=== PATIENT | male | born 1955 | race Caucasian/White ===

== ENCOUNTER 2024-07-14 18:03 | Emergency (ER) | payer MEDICARE, MEDICAID, SELFPAY ==
[2024-07-14 18:13] VITALS: BP 143/93; PULSE 99; RESP 18; TEMP 36.4; O2SAT 98; BMI 28.8
--- NOTE | 2024-07-14 18:59 | EKG_ITS ---
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
--- NOTE | 2024-07-14 19:29 | XR_ITS ---
Examination: CT brain head without contrast. 2-D sagittal coronal reconstructions Date and time of exam:July 14, 2024 1936 hrs. Comparison: December 22, 2023 Indications: Ground-level fall today CTDI: vol (mGy):56.9 DLP: (mGycm):1132 Technique: Multiple CT axial sections of the brain have been obtained, 5 mm slice thickness. Contrast has not been administered. 2-D sagittal, coronal reconstructions have been obtained Low dose protocols were performed. One or more of the following dose reduction techniques were used; automated exposure control, adjustment of the mA and/or KV according to patient size, use of iterative reconstruction technique. Findings: No significant ventricular enlargement. Intra-axial or extra-axial hemorrhage density is not seen. No mass effect or midline shift Basal cisterns are not remarkable. Fourth ventricle is midline. Cranial vault intact. Impression: Negative for acute hemorrhage, mass effect or midline shift
--- NOTE | 2024-07-14 19:29 | XR_ITS ---
Examination: AP chest single view Technique: AP portable sitting chest single view Exam date and time: July 14, 2024 1947 hrs. Comparison 05/08/2024 Indications: Onset weakness today. Findings: Normal heart size Mild to moderate elevation right hemidiaphragm No pneumonia or pulmonary edema Moderate osteopenia Impression: No pneumonia or pulmonary edema
--- NOTE | 2024-07-14 19:55 | PC.NURSE ---
Assume care for this 69 year male with chief c/o of syncopal episode at home today around 1730hr. Pt reports that he was walking inside his home and heading toward a window that was open, and as he was walking, Pt stated, I don't remember anything. Pt denied hitting his head and that he was alone at the time of the fall. Pt reports that he has lifealert braces that help him contact EMS. On assessment there is no noticeable injures noted, Pt is able to MAEW without any discomfort. Pt is a GCS of 15, A&O X4. pt and caregiver both given update on plan of care. Call light within reach.
[2024-07-14 20:45] LABS: Basophils % (Auto) 0 % (0-2.5); Eosinophils # (Auto) 0.1 Thou/mm3 (0.0-0.5); Eosinophils % (Auto) 1 % (0-10); Hematocrit 42.2 % (41.0-53.0); Immature Granulocytes % (Auto) 1 % (0-0); Immature Granulocytes Auto 0.05 Thou/mm3 (0.00-0.00); Lymphocytes # (Auto) 0.8 Thou/mm3 (1.0-4.8); Lymphocytes % (Auto) 8 % (10-50); Mean Corpuscular HGB Conc 33.2 g/dl (31.0-37.0); Mean Corpuscular Hemoglobin 31.8 pg (25.0-35.0); Mean Corpuscular Volume 96 fL (80-100); Monocytes # (Auto) 0.8 Thou/mm3 (0.0-0.8); Monocytes % (Auto) 8 % (0-12); Neutrophils # (Auto) 7.5 Thou/mm3 (1.8-7.7); Neutrophils % (Auto) 81 % (37-80); Nucleated Red Blood Cell % 0 /100 WBC (0); Platelet Count 199 Thou/mm3 (140-440); RDW Standard Deviation 49.4 fL (35.1-43.9); White Blood Count 9.3 Thou/mm3 (3.8-10.6)
[2024-07-14 21:20] LABS: Alanine Aminotransferase < 7 U/L (10-49); Albumin, Serum 4.2 gm/dL (3.4-4.8); Albumin/Globulin Ratio 1.6 (1.2-2.2); Alkaline Phosphatase 166 U/L (46-116); Anion Gap 6 (7-16); Aspartate Amino Transferase 12 U/L (0-34); BUN/Creatinine Ratio 14 Ratio (12-20); Bilirubin,Total 0.2 mg/dL (0.3-1.2); Blood Urea Nitrogen 14 mg/dL (9-23); Calcium 9.9 mg/dL (8.3-10.6); Calcium (Corrected) 9.9 mg/dL (8.5-10.1); Carbon Dioxide 30.3 mMol/L (20.0-31.0); Chloride 102 mMol/L (98-107); Estimated Creatinine Clearance 76.6 mL/min (>60); Globulin 2.7 gm/dL (2.3-3.5); Glucose 104 mg/dL (74-106); Osmolality,Calculated 276 (275-295); Potassium 4.1 mMol/L (3.4-5.1); Sodium 138 mMol/L (136-145); Total Protein 6.9 gm/dL (5.7-8.2); eGFR > 60 See Note
--- NOTE | 2024-07-14 21:30 | PD.EDSYNC ---
ED Syncope RME/HPI General Chief Complaint: Syncope / Near Syncope Stated Complaint: SYNCOPE Arrival date/time: 07/14/24 18:03 Limitations: no limitations RME / HPI RME / HPI narrative: DR. DAIGLE MAIN ED EVALUATION: 69-year-old male with history of frequent falls, generalized weakness, with a life alert bracelet which deactivated due to a fall while he was going to close the blinds on his window. He denies tripping, he feels that he just felt too dizzy as he normally does and fell to the ground. He denies any head, neck, or extremity pain. He has no complaints now. Related Data Home Medications ?Medication ?Instructions ?Recorded ?Confirmed Losartan Potassium * (COZAAR *) 25 mg PO QDAY #0 tabs 06/26/17 aspirin 81 mg chewable tablet 81 mg PO QDAY ##0 06/26/17 cholecalciferol (vitamin D3) 50 2,000 unit PO QDAY #0 caps 06/26/17 mcg (2,000 unit) capsule (Vitamin D3) omeprazole 20 mg capsule,delayed 20 mg PO QDAY ##0 06/26/17 release primidone 250 mg tablet (Mysoline) 250 mg PO TID #0 tabs 06/26/17 carbamazepine 200 mg tablet 400 mg PO TID ##0 09/14/17 (Epitol) levetiracetam 500 mg tablet 500 mg PO BID #0 tabs 09/14/17 (Keppra) Previous Rx's ?Medication ?Instructions ?Recorded lisinopril 10 mg tablet 10 mg PO QDAY #30 tabs 06/26/17 albuterol sulfate 90 mcg/actuation 2 puff inhalation Q6HR PRN 09/14/17 aerosol inhaler (ProAir HFA) SHORTNESS OF BREATH OR WHEEZE #1 inh azithromycin 250 mg tablet 250 mg PO UD #6 tabs 09/14/17 (Zithromax) Allergies Allergy/AdvReac Type Severity Reaction Status Date / Time diazepam Allergy Mild Verified 09/14/17 10:07 divalproex sodium Allergy Mild Verified 09/14/17 10:07 Review of Systems Review of Systems Systems Reviewed: All systems reviewed, normal except as documented Narrative Review of Systems: GEN: No fever, no chills, no weight loss EYES: No discharge, no visual changes, no pain HEENT: No ear pain, no congestion, no sore throat PULM: No shortness of breath, no cough, no congestion CV: No chest pain, no dyspnea on exertion, no palpitations GI: No nausea, no vomiting, no diarrhea, no pain, no constipation : No frequency, no urgency and no dysuria MUSC/SKEL: No joint pain, no back pain SKIN: No rash PSYCH: No hallucinations, no depression HEME/LYMPH: No easy bleeding or bruising tendencies NEURO: + chronic generalized weakness (frequent falls see HPI), no headache Past Medical History Past Medical History NEUROLOGIC: Positive Epilepsy CARDIAC: Positive Hypertension GASTROINTESTINAL: Positive Gastroesophageal Reflux Disease Social History SMOKING STATUS: Never smoker SUBSTANCE USE: does not use ALCOHOL: Never ED Exam General Limitations: Present no limitations General appearance: Present alert and in no apparent distress Head Head exam: Present atraumatic, normocephalic and normal inspection Eye Eye exam: Present normal appearance, PERRL and EOMI ENT ENT exam: Present normal exam, normal oropharynx and mucous membranes moist Neck Neck exam: Present normal inspection, full ROM and trachea midline Chest Chest inspection: Present normal inspection and symmetric chest wall rise Respiratory Respiratory exam: Present normal lung sounds bilaterally Cardiovascular Cardiovascular exam: Present regular rate, normal rhythm and normal heart sounds Abdominal Exam Abdominal exam: Present soft and normal bowel sounds Extremities Exam Extremities exam: Present normal inspection and full ROM Back Exam Back exam: Present normal inspection and full ROM Neurological Exam Neurological exam: Present alert, oriented X3 and CN II-XII intact Psychiatric Psychiatric exam: Present normal affect and normal mood Skin Skin exam: Present warm, dry, intact and normal color Course Course Course Narrative: Patient was able to ambulate in the emergency department with minimal assistance. Quality Measures none Orders Category Date Time Status EKG (ED ONLY) *Do not use* NOW Care 07/14/24 18:[address] head/brain wo con Stat Exams 07/14/24 19:29 Completed EKG (ED Only) Stat Exams 07/14/24 18:59 Ordered XR chest 1V Stat Exams 07/14/24 19:29 Completed CBC Stat Lab 07/14/24 20:33 Completed CMP [Comprehensive Metabolic Panel] Stat Lab 07/14/24 20:33 Completed Vital Signs Vital signs: Vital Signs Temperature 97.6 F 07/14/24 18:13 Pulse Rate 99 07/14/24 18:13 Respiratory Rate 18 07/14/24 18:13 Blood Pressure 143/93 H 07/14/24 18:13 Pulse Oximetry (%) 98 07/14/24 18:13 Oxygen Delivery Method Room Air 07/14/24 18:13 Syncope MDM Narrative MDM Narrative:: Analilia Myers am scribing for and in the presence of Dr. Daigle. Patient data External records reviewed:: [facility] previous records (Reviewed last ED visit dated 05/08/24, discharged with the following: near syncope.) and EMS form Clinical information provided by:: patient and EMS Social determinants that could affect healthcare access:: none Patient has the following chronic illnesses:: Hypertension and GERD How is presenting disease/condition affected by chronic disease/condition?: uneffected by Evaluation data The following diagnostics were reviewed and interpreted by me:: lab results and radiology exam(s) Lab and/or radiology exams considered but not ordered:: none Interpretation Summary: Procedure(s): CT head/brain wo [facility] Accession Number(s): [id number] cc: Juan Asencio MD; Raudel Daigle MD; Chele Fabian MD~ Examination: CT brain head without contrast. 2-D sagittal coronal reconstructions Date and time of exam:July 14, 2024 1936 hrs. Comparison: December 22, 2023 Indications: Ground-level fall today CTDI: vol (mGy):56.9 DLP: (mGycm):1132 Technique: Multiple CT axial sections of the brain have been obtained, 5 mm slice thickness. Contrast has not been administered. 2-D sagittal, coronal reconstructions have been obtained Low dose protocols were performed. One or more of the following dose reduction techniques were used; automated exposure control, adjustment of the mA and/or KV according to patient size, use of iterative reconstruction technique. Findings: No significant ventricular enlargement. Intra-axial or extra-axial hemorrhage density is not seen. No mass effect or midline shift Basal cisterns are not remarkable. Fourth ventricle is midline. Cranial vault intact. Impression: Negative for acute hemorrhage, mass effect or midline shift Dictated By: Chele Fabian MD Procedure(s): XR chest 1V Accession Number(s): [id number] cc: Juan Asencio MD; Raudel Daigle MD; Chele Fabian MD~ Examination: AP chest single view Technique: AP portable sitting chest single view Exam date and time: July 14, 2024 1947 hrs. Comparison 05/08/2024 Indications: Onset weakness today. Findings: Normal heart size Mild to moderate elevation right hemidiaphragm No pneumonia or pulmonary edema Moderate osteopenia Impression: No pneumonia or pulmonary edema Dictated By: Chele Fabian MD Medications / Prescriptions Medications or Prescriptions considered but not ordered:: none Medication administrations:: none Consultations Consultation(s) initiated? (list below): No Diagnosis Syncope Differential Diagnosis: syncope due to orthostatic hypotension, vasovagal syncope and dehydration Most likely diagnosis given after review of the tests above:: Weakness Ground-level fall Admission Indicated Admission indicated?: not indicated Admission Request Was there a request for admission?: No Disposition Plan Disposition Plan: Discharge Discharge Attestation Discharge Attestation: The patient and all family members were given an opportunity to ask questions and understood the discharge instructions. Discharge instructions specifically effects, indications for sooner follow up or return to the emergency department, and the expected course of current diagnosis. Patient condition: Stable Discharge Plan Plan Patient Disposition: HOME (Self Care) Prescriptions/Referrals Prescriptions/Med Rec: No Action primidone [Mysoline] 250 MG tablet 250 mg PO TID Qty: 0 omeprazole 20 MG capsule,delayed release(DR/EC) 20 mg PO QDAY Qty: 0 aspirin 81 MG tablet,chewable 81 mg PO QDAY Qty: 0 cholecalciferol (vitamin D3) [Vitamin D3] 2,000 UNIT capsule 2,000 unit PO QDAY Qty: 0 Losartan Potassium * (COZAAR *) 25 MG tablet 25 mg PO QDAY Qty: 0 lisinopril 10 MG tablet 10 mg PO QDAY Qty: 30 0RF levetiracetam [Keppra] 500 MG tablet 500 mg PO BID Qty: 0 carbamazepine [Epitol] 200 MG tablet 400 mg PO TID Qty: 0 azithromycin [Zithromax] 250 MG tablet 250 mg PO UD Qty: 6 0RF albuterol sulfate [ProAir HFA] 8.5 GM HFA aerosol inhaler 2 puff Inhalation Q6HR PRN (Reason: SHORTNESS OF BREATH OR WHEEZE) Qty: 1 0RF Referrals: Juan Asencio MD [Primary Care Provider] - In 1 week Problem List Clinical Impression: Weakness, Ground-level fall Patient/Caregiver Discharge Instructions Education Materials: ED Weakness (Uncertain Cause), ED Fall Dizziness Weakn Balance Additional Instructions: Follow-up with your primary care doctor in 2 to 3 days for recheck. You can return to the emergency department sooner if symptoms worsen or if you notice any new, concerning issues Print Language: Upper Sorbian Stand Alone Forms: [facility] Award Info., Patient Portal Info Letter
[2024-07-14 21:35] VITALS: BP 138/93; PULSE 98; RESP 19; TEMP 36.9; O2SAT 97
[2024-07-14 21:44] VITALS: BP 139/93; PULSE 101; RESP 18; TEMP 36.8; O2SAT 99
== END 2024-07-14 21:44 | disposition home or self-care (01) ==
PROVIDERS: Emergency Provider Emergency Medicine; PCP Family Medicine
DX: R00.0 Tachycardia, unspecified (principal); R53.1 Weakness; R29.6 Repeated falls; R55 Syncope and collapse; I10 Essential (primary) hypertension; W18.30XA Fall on same level, unspecified, initial encounter
CPT/HCPCS: 36415; 70450; 71045; 80053; 81001; 85025; 93005; 99284

== ENCOUNTER 2024-10-09 19:49 | Inpatient (IN) | payer MEDICARE, MEDICAID, SELFPAY ==
[2024-10-09 19:57] VITALS: BP 132/81; PULSE 104; PULSE 84; RESP 20; TEMP 36.7; O2SAT 98; BMI 24.3
--- NOTE | 2024-10-09 20:19 | PD.EDFALL ---
ED Fall Injury RME/HPI General Chief Complaint: Fall Stated Complaint: FALL Time Seen by Provider: 10/09/24 20:19 Arrival date/time: 10/09/24 19:49 RME / HPI RME / HPI Narrative: Dr. Simpson?s Main ED Evaluation: 69yo male with a history of epilepsy BIBA from home presents to the ED for a fall. Patient states he was walking to the kitchen when he slipped and fell, landing on his left hip/thigh area. He endorses having left hip/thigh pain. He is unsure if he hit his head or neck. No LOC. He denies any headache, neck pain, chest pain, abdominal pain, back pain, cough, shortness of breath, dizziness, N/V/D or any other assocaited symptoms. He denies having a seizure. Related Data Home Medications ?Medication ?Instructions ?Recorded ?Confirmed Losartan Potassium * (COZAAR *) 25 mg PO QDAY #0 tabs 06/26/17 aspirin 81 mg chewable tablet 81 mg PO QDAY ##0 06/26/17 cholecalciferol (vitamin D3) 50 2,000 unit PO QDAY #0 caps 06/26/17 mcg (2,000 unit) capsule (Vitamin D3) omeprazole 20 mg capsule,delayed 20 mg PO QDAY ##0 06/26/17 release primidone 250 mg tablet (Mysoline) 250 mg PO TID #0 tabs 06/26/17 carbamazepine 200 mg tablet 400 mg PO TID ##0 09/14/17 (Epitol) levetiracetam 500 mg tablet 500 mg PO BID #0 tabs 09/14/17 (Keppra) Previous Rx's ?Medication ?Instructions ?Recorded lisinopril 10 mg tablet 10 mg PO QDAY #30 tabs 06/26/17 albuterol sulfate 90 mcg/actuation 2 puff inhalation Q6HR PRN 09/14/17 aerosol inhaler (ProAir HFA) SHORTNESS OF BREATH OR WHEEZE #1 inh azithromycin 250 mg tablet 250 mg PO UD #6 tabs 09/14/17 (Zithromax) Allergies Allergy/AdvReac Type Severity Reaction Status Date / Time diazepam Allergy Mild Verified 09/14/17 10:07 divalproex sodium Allergy Mild Verified 09/14/17 10:07 Review of Systems Review of Systems Systems Reviewed: All systems reviewed, normal except as documented ED Exam Narrative Physical exam: GENERAL APPEARANCE: alert and oriented x 4, well-developed, well-nourished, no acute distress VITALS: All vitals were reviewed and the pulse ox is 98% on room air, which is normal according to my interpretation. HEENT: Normocephalic, atraumatic; pupils equal, round, reactive to light; EOMI; mucous membranes pink, moist; oropharynx clear NECK: Supple LUNGS: CTABL; no wheezes, no rales, no rhonchi HEART: Regular rate, regular rhythm; normal S1, S2; no murmurs ABDOMEN: non distended; normal BS; soft, no tenderness, no guarding, no rebound; no masses, no organomegaly, no hernia BACK: no CVA tenderness EXTREMITIES: LLE is shortened and externally rotated; good pulses bilaterally to the LE; no edema NEUROLOGIC: awake; alert and oriented x4; cranial nerves II-XII grossly intact; no focal sensory or motor deficits PSYCHIATRIC: appropriate mood and affect SKIN: warm, dry, normal color; no rashes Course Quality Measures none Orders Category Date Time Status XR femur LT 2V Stat Exams 10/09/24 20:19 Completed XR hip LT w pelvis min 4V Stat Exams 10/09/24 20:19 Completed XR knee LT 3V Stat Exams 10/09/24 20:19 Completed Acetaminophen Tab [Tylenol ES Tab] Med 10/09/24 20:21 Discontinued 1,000 mg PO X1 ONE Ibuprofen Tab [Motrin Tab] Med 10/09/24 20:21 Discontinued 600 mg PO X1 ONE Vital Signs Vital signs: Vital Signs Temperature 98.0 F 10/09/24 19:57 Pulse Rate 104 H 10/09/24 19:57 Respiratory Rate 20 10/09/24 19:57 Blood Pressure 132/81 H 10/09/24 19:57 Pulse Oximetry (%) 98 10/09/24 19:57 Oxygen Delivery Method Room Air 10/09/24 19:57 Fall MDM Narrative MDM Narrative:: Scribe Attestation: 10/09/24 - Nazia Myers am scribing for and in the presence of Dr. Simpson. Patient data External records reviewed:: [facility] previous records (Per chart review, patient was seen here on 05/08/24 for near syncope.) Clinical information provided by:: patient Social determinants that could affect healthcare access:: none Patient has the following chronic illnesses:: epilepsy How is presenting disease/condition affected by chronic disease/condition?: uneffected by Evaluation data The following diagnostics were reviewed and interpreted by me:: radiology exam(s) Lab and/or radiology exams considered but not ordered:: none Interpretation Summary: [facility] Signed Patient: LULU ROMO. Record#: [id number] Birthdate: 1955 Age/Sex: 69 / M Location: [facility] Attending Dr: Ordering Physician: Geraldo Simpson MD Date of Service: 10/09/24 Procedure(s): XR knee LT 3V Accession Number(s): [id number] cc: Chele Fabian MD; Geraldo Simpson MD~ Examination: Knee, left , 2 views Technique: Knee AP, lateral, 2 views left Date and time of exam: October 09, 20242052 hrs. Indications: Patient fell today with injury to the knee, knee pain. Findings: No acute fracture No dislocation Impression: No acute fracture Dictated By: Chele Fabian MD Signed By: <Electronically signed by Chele Fabian MD in OV> 10/09/242053 [facility] Signed Patient: LULU ROMO [facility]. Record#: [id number] Birthdate: 1955 Age/Sex: 69 / M Location: [facility] Attending Dr: Ordering Physician: Geraldo Simpson MD Date of Service: 10/09/24 Procedure(s): XR hip LT w pelvis min 4V Accession Number(s): [id number] cc: Chele Fabian MD; Geraldo Simpson MD~ Examination:Left hip AP, lateral, AP pelvis 3 views Technique: Hip AP lateral, AP pelvis, 3 views Exam date and time:October 09, 20242021 hrs. Indications: Patient fell today with into the left hip, left hip pain. Findings: Acute angulated displaced left femoral neck fracture Right hip bones of the pelvis intact Impression: Acute angulated displaced left femoral neck fracture. Dictated By: Chele Fabian MD Signed By: <Electronically signed by Chele Fabian MD in OV> 10/09/242051 [facility] Signed Patient: LULU ROMO. Record#: [id number] Birthdate: 1955 Age/Sex: 69 / M [facility]: Ordering Physician: Geraldo Simpson MD Date of Service: 10/09/24 Procedure(s): XR femur LT 2V Accession Number(s): [id number] cc: Chele Fabian MD; Geraldo Simpson MD~ Examination: Left femur 2 views Technique: AP lateral left femur 2 views Exam date and time: October 09, 20242026 hrs. Indications: Patient fell today with injury to the left leg, leg pain. Findings: Acute displaced left femoral neck fracture Shaft of the femur intact Prominent osteopenia Impression: Acute angulated displaced left femoral neck fracture Dictated By: Chele Fabian MD Signed By: <Electronically signed by Chele Fabian MD in OV> 10/09/242052 Medications / Prescriptions Medications or Prescriptions considered but not ordered:: none Medication administrations:: Medication Administration History Discontinued Medications Acetaminophen (Acetaminophen 500 Mg Tablet) 1,000 mg PO X1 ONE Stop: 10/09/24 20:22 Last Admin: 10/09/24 20:44 Dose: 1,000 mg Documented By: CVL Ibuprofen (Ibuprofen Tab 600 Mg Tablet) 600 mg PO X1 ONE Stop: 10/09/24 20:22 Last Admin: 10/09/24 20:44 Dose: 600 mg Documented By: CVCamron see above Consultations Consultation(s) initiated? (list below): Yes Consultation #1 (Physician, Specialty, Details): Discussed case with [Dr. Davis] from [general surgery] regarding [consultation]. Discussed patients ED course, exam findings, labs, and radiology results. Agrees to consult. States to keep the patient NPO after midnight. Time: 21:27 Consultation #2 (Physician, Specialty, Details): Discussed case with [the resident physician, attending Dr. Perez] from Hospitalist service regarding admission. Discussed patients ED course, exam findings, labs, and radiology results. The Hospitalist [agrees] to accept the patient for admission. Time: 21:29 Diagnosis Fall Differential Diagnosis: other (fracture, dislocation, contusion) Most likely diagnosis given after review of the tests above:: left femoral fracture Admission Indicated Admission indicated?: indicated Admission Request Was there a request for admission?: Yes Admission Attestation Admission request attestation: Discussed case with [] from Hospitalist service regarding admission. Discussed patients ED course, exam findings, labs, and radiology results. The Hospitalist [agrees,declines] to accept the patient for admission. Disposition Plan Disposition Plan: Admit Discharge Plan Plan Patient Disposition: Admit Acute Care w/in Hospital Prescriptions/Referrals Prescriptions/Med Rec: No Action primidone [Mysoline] 250 MG tablet 250 mg PO TID Qty: 0 omeprazole 20 MG capsule,delayed release(DR/EC) 20 mg PO QDAY Qty: 0 aspirin 81 MG tablet,chewable 81 mg PO QDAY Qty: 0 cholecalciferol (vitamin D3) [Vitamin D3] 2,000 UNIT capsule 2,000 unit PO QDAY Qty: 0 Losartan Potassium * (COZAAR *) 25 MG tablet 25 mg PO QDAY Qty: 0 lisinopril 10 MG tablet 10 mg PO QDAY Qty: 30 0RF levetiracetam [Keppra] 500 MG tablet 500 mg PO BID Qty: 0 carbamazepine [Epitol] 200 MG tablet 400 mg PO TID Qty: 0 azithromycin [Zithromax] 250 MG tablet 250 mg PO UD Qty: 6 0RF albuterol sulfate [ProAir HFA] 8.5 GM HFA aerosol inhaler 2 puff Inhalation Q6HR PRN (Reason: SHORTNESS OF BREATH OR WHEEZE) Qty: 1 0RF Problem List Clinical Impression: Closed fracture of neck of left femur Patient/Caregiver Discharge Instructions Print Language: Serbian Stand Alone Forms: [facility] Award Info., Patient Portal Info Letter
[2024-10-09] MEDS: IBUPROFEN TAB 600 MG TABLET PO (20:44)
[2024-10-09] MEDS: ACETAMINOPHEN 500 MG TABLET 1000 MG PO (20:44)
--- NOTE | 2024-10-09 21:22 | XR_ITS ---
Examination: AP chest single view Technique one AP portable semiupright chest single view Exam date and time: October 09, 2024 2147 hrs. Indications: Patient fell today with injury to the chest, chest pain Findings: Normal heart size No pneumothorax Minor atelectasis at the right base Clavicles ribs appear intact Impression: No pneumothorax pulmonary contusion or hemothorax
--- NOTE | 2024-10-09 21:22 | EKG_ITS ---
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
[2024-10-09 21:55] LABS: Basophils # (Auto) 0.1 Thou/mm3 (0.0-0.2); Basophils % (Auto) 1 % (0-2.5); Eosinophils # (Auto) 0.2 Thou/mm3 (0.0-0.5); Eosinophils % (Auto) 2 % (0-10); Hematocrit 42.5 % (41.0-53.0); Hemoglobin 14.5 g/dL (13.5-16.0); Immature Granulocytes % (Auto) 1 % (0-0); Immature Granulocytes Auto 0.06 Thou/mm3 (0.00-0.00); Lymphocytes % (Auto) 10 % (10-50); Mean Corpuscular HGB Conc 34.1 g/dl (31.0-37.0); Mean Corpuscular Volume 94 fL (80-100); Monocytes # (Auto) 0.8 Thou/mm3 (0.0-0.8); Monocytes % (Auto) 8 % (0-12); Neutrophils % (Auto) 79 % (37-80); Nucleated Red Blood Cell % 0 /100 WBC (0); Platelet Count 178 Thou/mm3 (140-440); RDW Standard Deviation 46.5 fL (35.1-43.9); Red Blood Count 4.53 Miln/mm3 (4.50-5.90); White Blood Count 10.1 Thou/mm3 (3.8-10.6)
[2024-10-09 22:03] LABS: Alanine Aminotransferase 12 U/L (10-49); Albumin, Serum 4.3 gm/dL (3.4-4.8); Albumin/Globulin Ratio 1.5 (1.2-2.2); Alkaline Phosphatase 155 U/L (46-116); Anion Gap 7 (7-16); Aspartate Amino Transferase 12 U/L (0-34); BUN/Creatinine Ratio 17 Ratio (12-20); Bilirubin,Total 0.2 mg/dL (0.3-1.2); Blood Urea Nitrogen 17 mg/dL (9-23); Calcium 9.1 mg/dL (8.3-10.6); Calcium (Corrected) 9.1 mg/dL (8.5-10.1); Carbon Dioxide 30.1 mMol/L (20.0-31.0); Chloride 100 mMol/L (98-107); Estimated Creatinine Clearance 69.4 mL/min (>60); Globulin 2.8 gm/dL (2.3-3.5); Glucose 104 mg/dL (74-106); Magnesium 1.8 mg/dL (1.6-2.6); Osmolality,Calculated 275 (275-295); Partial Thromboplastin Time 24.7 Seconds (22.0-36.0); Potassium 4.4 mMol/L (3.4-5.1); Prothrombin Time 10.9 Seconds (9.0-12.2); Sodium 137 mMol/L (136-145); Total Protein 7.1 gm/dL (5.7-8.2); eGFR > 60 See Note
--- NOTE | 2024-10-09 22:28 | PD.RESHP ---
Documentation for date of: 10/09/24 [facility] History of Present Illness Chief complaint: Left hip pain status post ground-level mechanical fall History of present illness: Mr. Aviles is a 69-year-old male with past medical history of seizure disorder, hypertension, GERD and vitamin D deficiency who presented to [facility] on 10/09/2024 from home after ground-level mechanical fall for hip pain. Patient reported that earlier this morning he was in his kitchen when he tripped on spilled ice tea and hurt his left hip, patient denied hitting head, denied dizziness loss of consciousness, seizure or seizure-like activity. Patient otherwise has no complaints, reports following up with Dr. Roa outpatient for seizures. Currently denies any chest pain headache and shortness of breath. ED Course: ED Vitals: On presentation BP 132/81, P104, RR 20, temp 98.0, O2 sat 98 on room air ED Labs: ED labs significant for alk phos 155. ED Imaging: Patient's femur x-ray significant for acute angulated displaced left femoral neck fracture, hip pelvis x-ray shows acute angulated displaced left femoral neck fracture, knee x-ray shows no acute fracture chest x-ray negative EKG significant for sinus rhythm. ED Treatment:Patient was given Tylenol 1000 mg x 1, ibuprofen 600 mg x 1 and Zofran 4 mg x 1 in ED Orthopedics was consulted in ED, recommended admission for further management. Review of Systems Review of Systems Narrative Review of Systems: ROS: -CONSTITUTIONAL: Denies weight loss, fever and chills. -HEENT: Denies changes in vision and hearing. -RESPIRATORY: Denies SOB and cough. -CV: Denies palpitations and Chest Pain. -GI: Denies abdominal pain, nausea, vomiting,constipation and diarrhea. -: Denies dysuria and urinary frequency. -MSK: Positive for left leg pain. -SKIN: Denies rash and pruritus. -NEUROLOGICAL: Denies headache and syncope. -PSYCHIATRIC: Denies recent changes in mood. Denies anxiety and depression. Past Medical History Past Medical History Comments PMH COMMENT: PMH: Positive for seizure disorder, hypertension, GERD and vitamin D deficiency PSHx: Positive for surgery on left leg Allergies: Allergic to divalproex and diazepam Social history: -Smoking: Positive for occasional smoking in past, denies any heavy smoking -Alcohol Use: Denies -Illicit Drug Use: Denies Family History: No history of heart disease or stroke Exam Vital Signs Temp Pulse Resp BP Pulse Ox O2 Del Method 98.0 F 104 H 20 132/81 H 98 Room Air 10/09/24 19:57 10/09/24 19:57 10/09/24 19:57 10/09/24 19:57 10/09/24 19:57 10/09/24 19:57 Narrative Exam Physical Exam General: Awake and in no acute distress. Conversational and non-toxic appearing. HEENT: Normocephalic, atraumatic, mucous membranes moist. Heart: Regular rate and rhythm, no murmurs. Lungs: Clear to auscultation with no wheezing or crackles. Abdomen: Soft, nondistended, nontender, positive bowel sounds. ?No guarding or rebound tenderness. Neurologic: Alert and oriented x3, no gross neurological deficit, and patient able to move all 4 extremities. Extremities: No edema. Left leg externally rotated, shorter than right leg. Skin: No rash or ecchymoses. Results: Labs 10/09/24 21:35 10/09/24 21:35 Labs: BMP 10/09/24 21:35 Sodium 137 Potassium 4.4 Chloride 100 Carbon Dioxide 30.1 BUN 17 Creatinine 1.0 Glucose 104 Calcium 9.1 Liver Function 10/09/24 Range/Units 21:35 Total Bilirubin 0.2 L (0.3-1.2) mg/dL AST 12 (0-34) U/L ALT 12 (10-49) U/L Alkaline Phosphatase 155 H (46-116) U/L Albumin 4.3 (3.4-4.8) gm/dL Quality Measures Quality Measures none Advance care planning discussed with:: patient Medications Home Medications and Allergies Home Medications ?Medication ?Instructions ?Recorded ?Confirmed ?Type Losartan Potassium * (COZAAR *) 25 mg PO QDAY #0 tabs 06/26/17 10/10/24 History Held on 10/10/24. Instructions: Doctor's Order aspirin 81 mg chewable tablet 81 mg PO QDAY ##0 06/26/17 10/10/24 History Held on 10/10/24. Instructions: Doctor's Order cholecalciferol (vitamin D3) 50 2,000 unit PO QDAY #0 caps 06/26/17 10/10/24 History mcg (2,000 unit) capsule (Vitamin D3) Held on 10/10/24. Instructions: Doctor's Order omeprazole 20 mg capsule,delayed 20 mg PO QDAY ##0 06/26/17 10/09/24 History release primidone 250 mg tablet (Mysoline) 250 mg PO TID #0 tabs 06/26/17 10/09/24 History carbamazepine 200 mg tablet 600 mg PO BID ##0 09/14/17 10/10/24 History (Epitol) levetiracetam 500 mg tablet 500 mg PO BID #0 tabs 09/14/17 10/09/24 History (Keppra) acetaminophen 500 mg tablet 500 mg PO Q6H PRN pain 10/09/24 10/09/24 History levetiracetam 1,000 mg tablet 1,000 mg PO Q12H 10/09/24 10/09/24 History docusate sodium 250 mg capsule 250 mg PO QDAY PRN constipation 10/10/24 10/10/24 History Allergies Allergy/AdvReac Type Severity Reaction Status Date / Time diazepam Allergy Mild Verified 09/14/17 10:07 divalproex sodium Allergy Mild Verified 09/14/17 10:07 Visit Medications Acetaminophen (Acetaminophen 325 Mg Tablet) 650 mg PO Q6H PRN PRN Reason: PAIN SCALE 1-3 (mild Stop: 11/08/24 22:08 Hydrocodone Bitart/Acetaminophen (Hydrocodone/Apap 5/325 Tablet) 1 tab PO Q4HR PRN PRN Reason: PAIN SCALE 4-6 (Moderate Stop: 10/14/24 22:08 Carbamazepine (Carbamazepine 200 Mg Tablet) 600 mg PO BID [facility] Stop: 11/08/24 22:29 Levetiracetam (Levetiracetam Inj 100 Mg/Ml Vial 5ml) 1,000 mg IVP BID [facility] Stop: 11/08/24 22:14 Morphine Sulfate (Morphine Sulf Inj 10 Mg/Ml Vial) 2 mg IVP Q4H PRN PRN Reason: PAIN SCALE 7-10 (Severe Stop: 10/14/24 22:08 Ondansetron HCl (Ondansetron Inj 2 Mg/Ml Inj 2 Ml) 4 mg IV Q6H PRN; Protocol PRN Reason: NAUSEA OR VOMITING Stop: 11/08/24 22:08 Pantoprazole Sodium (Pantoprazole Inj 40 Mg Vial) 40 mg IVP QDAY [facility] Stop: 11/09/24 08:59 Primidone (Primidone 50 Mg Tablet) 250 mg PO TID [facility] Stop: 10/14/24 22:29 Sennosides (Senna Tablet) 1 tab PO QDAY [facility]; Protocol Stop: 11/09/24 08:59 Discontinued Medications Acetaminophen (Acetaminophen 500 Mg Tablet) 1,000 mg PO X1 ONE Stop: 10/09/24 20:22 Last Admin: 10/09/24 20:44 Dose: 1,000 mg Ibuprofen (Ibuprofen Tab 600 Mg Tablet) 600 mg PO X1 ONE Stop: 10/09/24 20:22 Last Admin: 10/09/24 20:44 Dose: 600 mg Morphine Sulfate (Morphine Sulf Inj 10 Mg/Ml Vial) 2 mg IVP Q30M PRN PRN Reason: PAIN Stop: 10/09/24 22:09 Ondansetron HCl (Ondansetron Inj 2 Mg/Ml Inj 2 Ml) 4 mg IV X1 ONE; Protocol Stop: 10/09/24 21:24 Assessment & Plan Plan Assessment and Plan: Summary: Mr. Aviles is a 69-year-old male with past medical history of seizure disorder, hypertension, GERD and vitamin D deficiency who presented to [facility] on 10/09/2024 from home after ground-level mechanical fall for hip pain. #Acute displaced left femoral neck fracture #Status post ground-level mechanical fall Patient presented status post ground-level mechanical fall, after spilling on ice tea, denies hitting head, denies loss of consciousness, denies dizziness. Femur x-ray and hip pelvis x-ray significant for acute angulated displaced left femoral neck fracture, knee x-ray negative Patient does report taking aspirin on and off at home for headache, not on any anticoagulation Plan: -Orthopedics consulted, appreciate recommendations -N.p.o. after midnight -Pain management #Seizure disorder Patient follows closely with Dr. Roa neurologist for seizure disorder. Patient on Keppra 1000 mg twice daily, carbamazepine 600 mg 3 times daily and primidone to 50 mg 3 times daily. Plan: -Resumed home dose of antiepileptic drugs -Started on IV Keppra as patient is n.p.o. after midnight #GERD Patient has history of GERD, on omeprazole 20 mg daily at home -Started on IV Protonix 40 daily #Elevated alk phos Possibly in setting of acute left femoral neck fracture, monitor in a.m. DVT prophylaxis: SCDs, avoiding chemical prophylaxis, possible impending surgery in a.m. GI prophylaxis: IV Protonix Diet: N.p.o. after midnight Lines: Peripheral IV Code status: Full code Case discussed with Attending Dr. Perez. Mariza Lizama PGY1 Disclaimer: This note was dictated by speech recognition. Minor errors in supervisor screen making may be present due to voice recognition software. Attending Provider Attestation/Addendum I have examined the patient, reviewed labs and imaging findings, discussed the case with the resident(s), and reviewed entered orders. I agree with the plan of care as outlined in this note, with these additional summaries/recommendations: Patient is a 69-year-old male with a medical history of seizure disorder, vitamin D deficiency, primary hypertension, and GERD who presents to [facility] emergency department on 10/09/2024 with chief complaint of left hip pain. Patient was found to have left femoral neck fracture and hospitalist team consulted for continuation of care. # Left femoral neck fracture Secondary to ground-level mechanical fall. Patient denies any preceding symptoms and denies pain throughout his body except left hip. XR Femur LT & Hip/Pelvis XR: Acute angulated displaced left femoral neck fracture Orthopedics consulted, recommendations appreciated Plan: Orthopedics consulted with plans for likely surgical intervention tomorrow 10/10/2024. Avoid chemical anticoagulation. Start pain management. Morning labs ordered w/ COAGs. N.p.o. after midnight. Will obtain PT consult when able. # Seizure disorder Plan: Continue home antiepileptics # GERD: Plan: Continue PPI. Dr. Perez
[2024-10-09 22:42] VITALS: RESP 98
[2024-10-09 22:44] VITALS: BP 132/88; PULSE 116; RESP 18; TEMP 36.9; O2SAT 98
[2024-10-09] MEDS: ONDANSETRON INJ 2 MG/ML INJ 2 ML 4 MG IV (22:54)
[2024-10-09] MEDS: MORPHINE SULF INJ 10 MG/ML VIAL 2 MG IVP (22:56)
[2024-10-10] VITALS (17 sets, daily range): BP systolic 119–185; BP diastolic 73–103; PULSE 75–103; RESP 12–96; TEMP 36.1–36.8; O2SAT 95–99; BMI 36.0
[2024-10-10] MEDS: MORPHINE SULF INJ 10 MG/ML VIAL 2 MG IVP (05:30)
[2024-10-10 05:37] LABS: Basophils # (Auto) 0.1 Thou/mm3 (0.0-0.2); Basophils % (Auto) 1 % (0-2.5); Eosinophils # (Auto) 0.1 Thou/mm3 (0.0-0.5); Eosinophils % (Auto) 1 % (0-10); Hematocrit 41.2 % (41.0-53.0); Hemoglobin 13.6 g/dL (13.5-16.0); Immature Granulocytes % (Auto) 1 % (0-0); Immature Granulocytes Auto 0.04 Thou/mm3 (0.00-0.00); Lymphocytes # (Auto) 1.3 Thou/mm3 (1.0-4.8); Lymphocytes % (Auto) 16 % (10-50); Mean Corpuscular Hemoglobin 31.4 pg (25.0-35.0); Mean Corpuscular Volume 95 fL (80-100); Monocytes # (Auto) 0.6 Thou/mm3 (0.0-0.8); Monocytes % (Auto) 8 % (0-12); Neutrophils # (Auto) 5.9 Thou/mm3 (1.8-7.7); Neutrophils % (Auto) 74 % (37-80); Nucleated Red Blood Cell % 0 /100 WBC (0); Platelet Count 172 Thou/mm3 (140-440); RDW Standard Deviation 47.7 fL (35.1-43.9); Red Blood Count 4.33 Miln/mm3 (4.50-5.90)
[2024-10-10 05:55] LABS: Partial Thromboplastin Time 24.8 Seconds (22.0-36.0)
[2024-10-10 06:24] LABS: Alanine Aminotransferase 11 U/L (10-49); Albumin, Serum 4.2 gm/dL (3.4-4.8); Albumin/Globulin Ratio 1.6 (1.2-2.2); Alkaline Phosphatase 137 U/L (46-116); Anion Gap 6 (7-16); Aspartate Amino Transferase 12 U/L (0-34); BUN/Creatinine Ratio 21 Ratio (12-20); Bilirubin,Total 0.2 mg/dL (0.3-1.2); Blood Urea Nitrogen 21 mg/dL (9-23); Calcium 9.4 mg/dL (8.3-10.6); Calcium (Corrected) 9.4 mg/dL (8.5-10.1); Carbon Dioxide 31.8 mMol/L (20.0-31.0); Cardiac Risk Estimate 2.8 RATIO (4.0-6.7); Chloride 101 mMol/L (98-107); Cholesterol 223 mg/dL (132-200); Estimated Creatinine Clearance 85.2 mL/min (>60); Globulin 2.6 gm/dL (2.3-3.5); Glucose 90 mg/dL (74-106); HDL Cholesterol 79 mg/dL (40-60); LDL Cholesterol,Calculated 122 mg/dL (0-130); Magnesium 1.9 mg/dL (1.6-2.6); Osmolality,Calculated 280 (275-295); Phosphorous 3.4 mg/dL (2.4-5.1); Potassium 5.9 mMol/L (3.4-5.1); Sodium 139 mMol/L (136-145); Thyroid Stimulating Hormone 2.59 uIU/mL (0.55-4.78); Total Protein 6.8 gm/dL (5.7-8.2); Triglycerides 111 mg/dL (30-150); eGFR > 60 See Note
--- NOTE | 2024-10-10 09:08 | PC.SS ---
Follow up note: On IV antibiotic. Pt is NPO. Dr. Dial recommendations pending. Neuro recommendations pending.
[2024-10-10] MEDS: levETIRAcetam INJ 100 MG/ML VIAL 5ML 1000 MG IVP ×2 (09:39→21:01)
[2024-10-10] MEDS: SOD POLYSTYRENE SULFON SUSP 15 GM/60 ML BTL 30 GM PO (09:40)
[2024-10-10] MEDS: SENNA TABLET 1 TAB PO (09:40)
[2024-10-10] MEDS: PANTOPRAZOLE INJ 40 MG VIAL IVP (09:40)
--- NOTE | 2024-10-10 09:43 | ESCONSULT_ITS ---
<Statement entered by Pavan Hernandez MD - 10/13/24 07:55> I personally evaluated this patient appears to be clinically stable not have any cardiac symptoms fairly decent for tolerance no cardiac risk factors given cardiac clearance for hip surgery HPI Data of Consult Requesting Physician: Ramez Aviles MD Admitting Provider: Sage Perez MD Attending Provider: Ramez Aviles MD Primary Care Provider: Juan Asencio MD Consult Narrative Reason for consult: Cardiac clearance for surgery History of present illness: 69 y/o M with PMHx significant for epilepsy presenting to ED with chief complaint of right hip pain s/p fall without head injury or loss of consciousness. Patient was found to have displaced left femoral neck fracture on x-ray imaging. Cardiology was consulted for cardiac clearance for surgical repair. Patient has no known history of diabetes, hypertension, kidney disease. Has no history of previous stroke or [place]. Patient EKG unremarkable. No echo on file. Patient does have low baseline activity, do in part to gait instability secondary to epilepsy requiring use of walker. Patient denies chest pain, shortness of breath. Left leg shortened and externally rotated, physical exam otherwise benign. Based on clinical history and normal EKG, patient does not require further workup for clearance, presurgical cardiac assessment is normal. PMH: Positive for seizure disorder, GERD and vitamin D deficiency PSHx: Positive for surgery on left leg Allergies: Allergic to divalproex and diazepam Social history: -Smoking: Positive for occasional smoking in past, denies any heavy smoking -Alcohol Use: Denies -Illicit Drug Use: Denies Family History: No history of heart disease or stroke cc:: cc: Ramez Aviles MD Review of Systems Review of Systems Systems Reviewed: All systems reviewed, normal except as documented Past Medical History Past Medical History Comments PMH COMMENT: PMH: Positive for seizure disorder, GERD and vitamin D deficiency PSHx: Positive for surgery on left leg Allergies: Allergic to divalproex and diazepam Social history: -Smoking: Positive for occasional smoking in past, denies any heavy smoking -Alcohol Use: Denies -Illicit Drug Use: Denies Family History: No history of heart disease or stroke Exam Vital Signs Temp Pulse Resp BP Pulse Ox O2 Del Method 97.7 F 82 15 149/98 H 97 Room Air 10/10/24 08:00 10/10/24 09:18 10/10/24 09:18 10/10/24 08:00 10/10/24 08:00 10/10/24 08:00 Narrative Exam PE: Gen: Well-developed and well-nourished. Mildly obese. HEENT: NCAT, PERRLA, EOMI, MMM, anicteric conjunctivae. CVS: normal S1 and S2. RRR. No M/R/G. Resp: CTA B/L. No rhonchi, rales, crackles or wheezing. Abd: soft, non-tender, non-distended. MSK: Good ROM in BUE & RLE. No edema or rash. LLE shortened and externally rotated, distal pulses intact. Neuro: CN II-XII grossly intact. Strength 5/5 in BUE & RLE. Alert and oriented x3. Psych: appropriate mood and affect. Results Labs 10/10/24 05:11 10/10/24 05:11 Labs: Short CBC 10/09/24 10/10/24 Range/Units 21:35 05:11 WBC 10.1 8.0 (3.8-10.6) Thou/mm3 Hgb 14.5 13.6 (13.5-16.0) g/dL Hct 42.5 41.2 (41.0-53.0) % Plt Count 178 172 (140-440) Thou/mm3 BMP 10/09/24 10/10/24 21:35 05:11 Sodium 137 139 Potassium 4.4 5.9 H D Chloride 100 101 Carbon Dioxide 30.1 31.8 H BUN 17 21 Creatinine 1.0 1.0 Glucose 104 90 Calcium 9.1 9.4 Liver Function 10/09/24 10/10/24 Range/Units 21:35 05:11 Total Bilirubin 0.2 L 0.2 L (0.3-1.2) mg/dL AST 12 12 (0-34) U/L ALT 12 11 (10-49) U/L Alkaline Phosphatase 155 H 137 H (46-116) U/L Albumin 4.3 4.2 (3.4-4.8) gm/dL Quality Measures Quality Measures VTE prophylaxis Advance care planning discussed with:: patient and other (Home health health care analyst) Medications Home Medications and Allergies Home Medications ?Medication ?Instructions ?Recorded ?Confirmed ?Type Losartan Potassium * (COZAAR *) 25 mg PO QDAY #0 tabs 06/26/17 10/10/24 History Held on 10/10/24. Instructions: Doctor's Order aspirin 81 mg chewable tablet 81 mg PO QDAY ##0 10/10/24 History Held on 10/10/24. Instructions: Doctor's Order cholecalciferol (vitamin D3) 50 2,000 unit PO QDAY #0 caps 06/26/17 10/10/24 History mcg (2,000 unit) capsule (Vitamin D3) Held on 10/10/24. Instructions: Doctor's Order omeprazole 20 mg capsule,delayed 20 mg PO QDAY ##0 10/09/24 History release primidone 250 mg tablet (Mysoline) 250 mg PO TID #0 ta bs 06/26/17 10/09/24 History carbamazepine 200 mg tablet 600 mg PO BID ##0 09/14/17 10/10/24 History (Epitol) levetiracetam 500 mg tablet 500 mg PO BID #0 tabs 09/0310/09/24 History (Keppra) acetaminophen 500 mg tablet 500 mg PO Q6H PRN pain 02/2510/09/24 History levetiracetam 1,000 mg tablet 1,000 mg PO Q12H 5 10/09/24 History docusate sodium 250 mg capsule 250 mg PO QDAY PRN cons tipation 10/10/24 10/10/24 History Allergies Allergy/AdvReac Type Severity Reaction Status Date / Time diazepam Allergy Mild Verified 09/14/17 10:07 divalproex sodium Allergy Mild Verified 09/14/17 10:07 Visit Medications Acetaminophen (Acetaminophen 325 Mg Tablet) 650 mg PO Q6H PRN PRN Reason: PAIN SCALE 1-3 (mild Stop: 11/08/24 22:08 Hydrocodone Bitart/Acetaminophen (Hydrocodone/Apap 5/325 Tablet) 1 tab PO Q4HR PRN PRN Reason: PAIN SCALE 4-6 (Moderate Stop: 10/14/24 22:08 Carbamazepine (Carbamazepine 200 Mg Tablet) 600 mg PO BID [facility] Stop: 11/08/24 22:29 Last Admin: 10/09/24 22:59 Dose: Not Given Levetiracetam (Levetiracetam Inj 100 Mg/Ml Vial 5ml) 1,000 mg IVP BID [facility] Stop: 11/08/24 22:14 Last Admin: 10/10/24 09:39 Dose: 1,000 mg Morphine Sulfate (Morphine Sulf Inj 10 Mg/Ml Vial) 2 mg IVP Q4H PRN PRN Reason: PAIN SCALE 7-10 (Severe Stop: 10/14/24 22:08 Last Admin: 10/10/24 05:30 Dose: 2 mg Ondansetron HCl (Ondansetron Inj 2 Mg/Ml Inj 2 Ml) 4 mg IV Q6H PRN; Protocol PRN Reason: NAUSEA OR VOMITING Stop: 11/08/24 22:08 Pantoprazole Sodium (Pantoprazole Inj 40 Mg Vial) 40 mg IVP QDAY [facility] Stop: 11/09/24 08:59 Last Admin: 10/10/24 09:40 Dose: 40 mg Primidone (Primidone 50 Mg Tablet) 250 mg PO TID [facility] Stop: 10/14/24 22:29 Last Admin: 10/10/24 05:11 Dose: Not Given Sennosides (Senna Tablet) 1 tab PO QDAY [facility]; Protocol Stop: 11/09/24 08:59 Last Admin: 10/10/24 09:40 Dose: 1 tab Discontinued Medications Acetaminophen (Acetaminophen 500 Mg Tablet) 1,000 mg PO X1 ONE Stop: 10/09/24 20:22 Last Admin: 10/09/24 20:44 Dose: 1,000 mg Calcium Gluconate (Calcium Gluconate 10% Inj 1 Gm/10 Ml Vial) 1 gm IV X1 ONE Stop: 10/10/24 09:26 Ibuprofen (Ibuprofen Tab 600 Mg Tablet) 600 mg PO X1 ONE Stop: 10/09/24 20:22 Last Admin: 10/09/24 20:44 Dose: 600 mg Influenza Virus Vaccine Quadrival (Influenza Virus Quadrivalent 0.5 Ml Syringe) 0.5 ml IMi .ONCE ONE Stop: 10/10/24 08:01 Morphine Sulfate (Morphine Sulf Inj 10 Mg/Ml Vial) 2 mg IVP Q30M PRN PRN Reason: PAIN Stop: 10/09/24 22:09 Ondansetron HCl (Ondansetron Inj 2 Mg/Ml Inj 2 Ml) 4 mg IV X1 ONE; Protocol Stop: 10/09/24 21:24 Last Admin: 10/09/24 22:54 Dose: 4 mg Sodium Polystyrene Sulfonate (Sod Polystyrene Sulfon Susp 15 Gm/60 Ml Btl) 30 gm PO X1 ONE Stop: 10/10/24 07:52 Last Admin: 10/10/24 09:40 Dose: 30 gm Assessment & Plan Plan 69-year-old male with past medical history of seizure disorder, hypertension, GERD and vitamin D deficiency who presented to [facility] on 10/09/2024 from home after ground-level mechanical fall for hip pain. #Acute displaced left femoral neck fracture #Status post ground-level mechanical fall Patient presented status post ground-level mechanical fall, after spilling on ice tea, denies hitting head, denies loss of consciousness, denies dizziness. Femur x-ray and hip pelvis x-ray significant for acute angulated displaced left femoral neck fracture, knee x-ray negative Cardiology consulted for presurgical cardiac clearance. EKG unremarkable, patient is no history of diabetes, hypertension, kidney disease, previous stroke or [place]. Physical exam reassuring. -Based on clinical assessment patient needs no further imaging or cardiac workup, he is cleared for surgery from cardiac perspective #Seizure disorder #GERD #Elevated alk phos Management as per primary team DVT prophylaxis: SCDs, avoiding chemical prophylaxis, possible impending surgery GI prophylaxis: IV Protonix Diet: N.p.o. after midnight Lines: Peripheral IV Code status: Full code Plan of care discussed with attending Dr. Hernandez. Galo Stover MD PGY?1
[2024-10-10] MEDS: carBAMazepine 200 MG TABLET 600 MG PO ×2 (09:57→21:00)
[2024-10-10] MEDS: CALCIUM GLUCONATE 10% INJ 1 GM/10 ML VIAL IV (09:57)
--- NOTE | 2024-10-10 11:43 | ESPR_ITS ---
<Statement entered by Nathanael Tran MD - 10/11/24 05:02> Patient underwent left femoral neck surgery by Dr. Yojana sky. PT ordered, patient on IV morphine for pain management. I discussed with and supervised the video editing internship physician involved in the care of this patient. Patient assessment and plan was discussed with entire medicine team, including my attending. I agree with the assessment and plan as documented by video editing internship doctor. Patient care was discussed with my attending physician Dr. Traci Tran, PGY-2 Documentation for date of: 10/10/24 Subjective Subjective Interval history: Patient was seen and examined at bedside this AM. No acute exents overnight. Patient NPO, adequate urine output and mentation is at baseline. Patient complains of left hip pain. K5.9. Kayexalate given Orthopedics, Dr Davis consulted and closely following the case. Patient scheduled for surgery today Exam Vital Signs Temp Pulse Resp BP Pulse Ox O2 Del Method 97.7 F 85 16 157/97 H 98 Room Air 10/10/24 11:38 10/10/24 11:38 10/10/24 11:38 10/10/24 11:38 10/10/24 11:38 10/10/24 08:00 Narrative Exam Constitutional Alert, oriented x 3 and comfortable. Elderly male, obese HEENT Vision grossly intact. Patent nares. Trachea midline Respiratory Chest normal on inspection and clear auscultation bilaterally Cardiovascular S1 and S2 audible, RRR. No murmurs carotid bruit. No gross JVD. Abdominal Soft and non tender to palpation in all quadrants. BS + Genitourinary No bladder tenderness, no flank pain. Normal to palpation Musculoskeletal Extremities tone within normal limits. Left leg shortened and externally rotated Neurological CN II - XII grossly intact. Extremity motor and sensation grossly intact. Skin Warm, dry and intact. No apparent lesions. Psychiatric Patient has good affect, is cooperative Objective Labs 10/10/24 05:11 10/10/24 13:58 Labs: Laboratory Results - last 24 hr 10/09/24 10/10/24 21:35 05:11 WBC 10.1 8.0 RBC 4.53 4.33 L Hgb 14.5 13.6 Hct 42.5 41.2 MCV 94 95 MCH 32.0 31.4 MCHC 34.1 33.0 RDW Std Deviation 46.5 H 47.7 H Plt Count 178 172 Neut % (Auto) 79 74 Lymph % (Auto) 10 16 [place] % (Auto) 8 8 Eos % (Auto) 2 1 Baso % (Auto) 1 1 Neut # (Auto) 8.0 H 5.9 Lymph # (Auto) 1.0 1.3 [place] # (Auto) 0.8 0.6 Eos # (Auto) 0.2 0.1 Baso # (Auto) 0.1 0.1 Immature Gran # (Auto) 0.06 H 0.04 H Absolute Nucleated RBC 0.00 0.00 Immature Gran % 1 H 1 H Nucleated RBC % 0 0 PT 10.9 11.0 INR 1.0 1.0 APTT 24.7 24.8 Sodium 137 139 Potassium 4.4 5.9 H D Chloride 100 101 Carbon Dioxide 30.1 31.8 H Anion Gap 7 6 L BUN 17 21 Creatinine 1.0 1.0 Estim Creat Clear Calc 69.4 85.2 eGFR > 60 > 60 BUN/Creatinine Ratio 17 21 H Glucose 104 90 Calculated Osmolality 275 280 Calcium 9.1 9.4 Corrected Calcium 9.1 9.4 Phosphorus 3.4 Magnesium 1.8 1.9 Total Bilirubin 0.2 L 0.2 L AST 12 12 ALT 12 11 Alkaline Phosphatase 155 H 137 H Total Protein 7.1 6.8 Albumin 4.3 4.2 Globulin 2.8 2.6 Albumin/Globulin Ratio 1.5 1.6 Triglycerides 111 Cholesterol 223 H LDL Cholesterol, Calc 122 HDL Cholesterol 79 H Cholesterol/HDL Ratio 2.8 L TSH 2.59 Blood Type O Positive Antibody Screen NEGATIVE Crossmatch See Detail Blood Bank Wristband ID Yes Quality Measures Quality Measures VTE prophylaxis Advance care planning discussed with:: patient Assessment & Plan Assessment Current Active Medications: Generic Name Dose Route Start Last Admin Trade Name Freq PRN Reason Stop Dose Admin Acetaminophen 650 mg 10/09/24 22:09 Acetaminophen 325 Mg Tablet PO 11/08/24 22:08 Q6H PRN PAIN SCALE 1-3 (mild Hydrocodone Bitart/Acetaminophen 1 tab 10/09/24 22:09 Hydrocodone/Apap 5/325 Tablet PO 10/14/24 22:08 Q4HR PRN PAIN SCALE 4-6 (Moderate Carbamazepine 600 mg 10/09/24 22:30 10/10/24 09:57 Carbamazepine 200 Mg Tablet PO 11/08/24 22:29 600 mg BID VALENTÍN Administration Levetiracetam 1,000 mg 10/09/24 22:15 10/10/24 09:39 Levetiracetam Inj 100 Mg/Ml Vial 5ml IVP 11/08/24 22:14 1,000 mg BID VALENTÍN Administration Morphine Sulfate 2 mg 10/09/24 22:09 10/10/24 05:30 Morphine Sulf Inj 10 Mg/Ml Vial IVP 10/14/24 22:08 2 mg Q4H PRN Administration PAIN SCALE 7-10 (Severe Ondansetron HCl 4 mg 10/09/24 22:09 Ondansetron Inj 2 Mg/Ml Inj 2 Ml IV 11/08/24 22:08 Q6H PRN NAUSEA OR VOMITING Protocol Pantoprazole Sodium 40 mg 10/10/24 09:00 10/10/24 09:40 Pantoprazole Inj 40 Mg Vial IVP 11/09/24 08:59 40 mg QDAY VALENTÍN Administration Primidone 250 mg 10/09/24 22:30 10/10/24 05:11 Primidone 50 Mg Tablet PO 10/14/24 22:29 Not Given TID VALENTÍN Sennosides 1 tab 10/10/24 09:00 10/10/24 09:40 Senna Tablet PO 11/09/24 08:59 1 tab QDAY VALENTÍN Administration Protocol Plan Mr. Aviles is a 69-year-old male with past medical history of seizure disorder, hypertension, GERD and vitamin D deficiency who presented to [facility] on 10/09/2024 from home after ground-level mechanical fall for hip pain. Patient will be admitted for management and treatment of acute, displaced left femoral neck fracture. 1. Acute displaced left femoral neck fracture 2. Status post ground-level mechanical fall Patient presented status post ground-level mechanical fall, after spilling on ice tea, denies hitting head, denies loss of consciousness, denies dizziness. Femur x-ray and hip pelvis x-ray significant for acute angulated displaced left femoral neck fracture, knee x-ray negative Patient does report taking aspirin on and off at home for headache, not on any anticoagulation Plan: ? Currently n.p.o. ? Scheduled for surgery today ? Orthopedics, Dr Davis consulted. Appreciate recommendations 3. Hyperkalemia?resolving K5.9. Most likely secondary to muscle breakdown after hip fracture Plan: ? Kayexalate 30 g p.o. x 1 given ? Follow-up renal panel at 2 PM 4. Seizure disorder Patient follows closely with Dr. Roa neurologist for seizure disorder. Patient on Keppra 1000 mg twice daily, carbamazepine 600 mg 3 times daily and primidone to 50 mg 3 times daily. Plan: - Continue home medication carbamazepine 600 Mg p.o. twice daily ? Continue home medication primidone 250 Mg p.o. 3 times daily - Continue IV Keppra as patient is n.p.o. 5. GERD Patient has history of GERD, on omeprazole 20 mg daily at home Plan: ? Continue pantoprazole 40 Mg IV daily 6. Elevated alkaline phosphatase?improving Possibly in setting of acute left femoral neck fracture ALP 155 --> 137 Health maintenance: Disposition: Pending left hip hemiarthroplasty Diet: N.p.o. Lines: pIVs GI Prophylaxis: Pantoprazole IV Thrombo Prophylaxis: None Code status: FULL CODE Plan of care discussed with Attending Dr. Aviles and PGY2 Dr. Marc Olivas MD PGY 1
[2024-10-10] MEDS: HYDROcodone/APAP 5/325 TABLET 1 TAB PO (11:57)
[2024-10-10 14:31] LABS: Albumin, Serum 4.3 gm/dL (3.4-4.8); Anion Gap 7 (7-16); BUN/Creatinine Ratio 18 Ratio (12-20); Blood Urea Nitrogen 18 mg/dL (9-23); Calcium 9.3 mg/dL (8.3-10.6); Calcium (Corrected) 9.3 mg/dL (8.5-10.1); Carbon Dioxide 31.9 mMol/L (20.0-31.0); Chloride 100 mMol/L (98-107); Estimated Creatinine Clearance 85.2 mL/min (>60); Glucose 97 mg/dL (74-106); Osmolality,Calculated 279 (275-295); Phosphorous 3.1 mg/dL (2.4-5.1); Potassium 4.7 mMol/L (3.4-5.1); Sodium 139 mMol/L (136-145); eGFR > 60 See Note
--- NOTE | 2024-10-10 14:38 | PC.SS ---
SS met with patient and caregiver, Donna regarding his d/c plan.? Pt is alert/oriented.? Pt was admitted for Acute Left Femoral Neck Fracture.? Pt confirmed demographic and contact information is correct on facesheet.? Pt resides alone.? Pt ambulates using walker.? Pt requires assistance with all ADLs.? Pt has caregiver from [facility] 4 hours everyday.? Pt named his brother, Mani Aviles medical decision maker if he is unable.? SS provided pt and caregiver with d/c options for home or SNF.? Pt prefers to return home but will decide once he works with PT.? Per caregiver, Donna patient is not conserved and Kurt Bailey is his Stack Supervisor from [facility].? Pt follows up with PCP every 3 months. D/C plan:? Return home vs SNF Next of Kin:? Mani Aviles, brother, phone# [phone] PCP:? Dr. Juan Rice from [facility] Address:? Correct on facesheet
--- NOTE | 2024-10-10 17:01 | SUR.PHASEI ---
Pt. arrived to recovery via bed, eyes closed, responds to name, VSS, no c/o pain or nausea at this time, lung sounds clear, equal expansion estevan., dressing to left hip patel, adaptic, fluffs, abd. pad and metaport tape intact, no active bleeding or swelling noted, cap refill to estevan. feet <3 secs, pedal pulses present and palpable to estevan. feet, report received from Jean-Claude DEVI and Dr. Lancaster.
--- NOTE | 2024-10-10 17:04 | XR_ITS ---
Examination: AP left hip single view Technique: AP supine portable left hip single view Date and time of exam 2024 1723 hrs. Indications: Postop left hip Today. Findings: Left hip replacement with satisfactory alignment Impression: Left hip bipolar hemiarthroplasty with satisfactory alignment
--- NOTE | 2024-10-10 17:05 | ESOP_ITS ---
Date of Procedure 10/10/24 Pre Op Diagnosis Fracture neck left femur Post Op Diagnosis Same Procedure Left hip bipolar hemiarthroplasty Justin implant. Femur size 11 Neck standard Bipolar head size 51 mm Findings Refer dictation Procedure Description Patient was given general anesthesia. Once satisfactory anesthesia achieved patient was put on right lateral position with left hip on the top. Patient was nicely secured with the help of bag on the pegboard. Part was thoroughly prepped and draped. Intravenous antibiotics was given at the time of anesthesia. After identifying the site skin incision was made from the tip of greater trochanter extending proximally towards the posterior superior Shital spine for about 3 to 4 inches and also distally for another 6 to 7 inches. Deeper dissection was carried out. Subcu tissue and fascia was incised in the line of his skin incision. Following that the tensor fascia daniel was incised in the line of his skin incision. Gluteus angelita muscle fiber fascia was split in the direction of the fibers Deeper retractor was placed. Chidi bursa was exposed and then it was excised. 2 stay sutures were then placed pretty close to the femoral attachment of the short external rotator muscles. The short external rotators muscle was incised and was carried into the proximal half of the quadratus femoris muscle. Pyriformis was not cut. Sciatic nerve was protected all along. The capsule of the joint was incised. Following that broken neck of the femur was delivered in the wound The soft tissue from the neck was reflected. 1 fingerbreadth proximal to calcar the neck of the femur was cut. Following that with the help of cortical screw the head was removed. The surrounding soft tissue was also removed. Sizing was done and decision was made to use size 51 mm head. A trial head was placed and fitted very well. Trial head was removed Following that attention was paid towards the femur The inner aspect of the greater trochanter was chiseled out with the box chisel. Following that with the help of T-handle reamer it was reamed. Starting with size 7 the stem was placed in about 20 degrees of anteversion. Size 11 fitted very well. Reaming was done. Trial size 7 prosthesis was placed with a standard neck and 51 mm bipolar head. It was reduced. The joint was very much is stable. I could flex up to 90 degrees including 75 degrees of internal rotation. I could also fully extend the hip joint. Following that the trial process was removed. The marrow canal was treated with hydrogen peroxide solution. Following that size 11 stem was placed and about 20 degrees of anteversion. A standard neck with 51 mm bipolar head was placed and reduced. It fitted very well. The integrity was tested again and found to be good The capsule of the joint was closed with 1 Vicryl in an interrupted fashion. The gluteus angelita muscle fiber fascia was closed with the help of 2-0 Vicryl in interrupted fashion. The tensor fascia daniel was closed with 1's strata 4 in continuous fashion. The subcu tissue was closed with 2 oh is For. The skin was closed with a patel To cleaning the wound with hydrogen peroxide solution a sterile dressing was applied. Patient tolerated procedure well. Estimated blood loss 100 mL An abduction pillow and neoplasm was placed. Further management. Patient will be mobilized with the help of physical therapist. Left hip precautions will be advised. Patient will be full weight- bear Anesthesia GETA Pathology / specimen None Estimated Blood Loss 100 Surgeon Jaun Davis MD Surgical Staff Operation Date: 10/10/24 16:00 Case Staff Anesthesiologist: Geraldo Lancaster RN First Assistant: Marifer Miranda
[2024-10-10] MEDS: ACETAMINOPHEN IVPB 1,000 MG/100 ML VIAL 250 MG IV (17:19)
--- NOTE | 2024-10-10 17:39 | SUR.PHASEI ---
Called and gave report on pt. s/p surgery to Sukumar DEVI on M/S unit.
--- NOTE | 2024-10-10 17:45 | SUR.PHASEI ---
Pt. transferred to room 352 via bed with trapeze and seizure pads in place, VSS, AAOx3, no c/o pain or nausea at this time, dressing to left hip CDI, hip abductor and leg immobilizer in place, IV flushed and patent. Sukumar DEVI assumed care of pt.
[2024-10-10] MEDS: ceFAZolin/D5W 1 GM IVPB 1 GM/50 ML BAG IV (18:26)
--- NOTE | 2024-10-10 19:31 | ESCONSULT_ITS ---
RE: LULU ROMO : 1955 DATE OF CONSULTATION: 10/10/2024 Thank you, Dr. Lizama, for asking me to consult this patient who I saw early in the morning of 10/10/2024. HISTORY OF PRESENT ILLNESS: As per history of , the patient had a ground- level mechanical fall and injured his left hip region. Following that, the patient was unable to walk. The patient was brought to the emergency room. X-rays revealed fractured neck of the left femur. The patient was admitted for further management. PAST MEDICAL HISTORY: The patient has history of seizure disorder. Last seizure was about seven years back. Besides that, the patient has history of high blood pressure with GERD and vitamin D deficiency. The patient also underwent surgical procedure on the left leg. DRUG HISTORY: The patient is on losartan, aspirin, vitamin D2, omeprazole, primidone, Keppra, acetaminophen. ALLERGIES: ALLERGIES TO DIAZEPAM AND DIVALPROEX SODIUM. FAMILY HISTORY AND SOCIAL HISTORY: Noncontributory. PHYSICAL EXAMINATION: GENERAL: Normal built person. The patient is fully alert and oriented. VITAL SIGNS: Pulse is 88 per minute, blood pressure 130/76. NECK: Examination: Soft, supple. No mass felt. Trachea is centrally placed. CARDIOVASCULAR SYSTEM: First and second heart sounds are normal. No murmur heard. RESPIRATORY SYSTEM: Bilateral vascular breath sounds. CHEST: Clear. ABDOMEN: Soft. No mass felt. Bowel sounds present. EXTREMITIES: Left lower limb was examined, was short and externally rotated. DIAGNOSTIC DATA: X-ray confirmed subcapital fracture of the left hip. The patient was advised left hip bipolar hemiarthroplasty. Detailed discussion took place. The patient wanted his caregiver to be there and I discussed with his caregiver as well. Risks with anesthesia was explained and that includes, but not limited to reaction to anesthetic agents, cardiac arrest and rarely it might be fatal. Risk with operation includes infection and if that happens, the patient may need further surgical procedure. Other risks include delayed healing wound dehiscence, etc. Risk of recurrent dislocation is also present. Detailed discussion took place. Possibility of left total hip replacement was also discussed. However, because of history of seizures and the patient has multiple medical problems and issues, therefore, a decision was made to go with the bipolar hemiarthroplasty and I discussed the possibility of the same with the patient and the caregiver. They also wanted to proceed with bipolar hemiarthroplasty. Consult from Dr. Pavan Hernandez, the primary care pediatrician was also obtained and he has cleared for surgical procedure. surgery is booked for 10/10/2024. DT: 17:16:59 TT: 19:00:00 Ref: [id number] - TID: [id number]
[2024-10-10] MEDS: PRIMIDONE 50 MG TABLET 250 MG PO (21:00)
[2024-10-11] VITALS (11 sets, daily range): BP systolic 104–157; BP diastolic 66–97; PULSE 70–107; RESP 17–98; TEMP 36.1–36.7; O2SAT 93–98; BMI 11.0
[2024-10-11] MEDS: ACETAMINOPHEN IVPB 1,000 MG/100 ML VIAL 250 MG IV ×2 (00:02→06:01)
[2024-10-11] MEDS: ceFAZolin/D5W 1 GM IVPB 1 GM/50 ML BAG IV (02:30)
--- NOTE | 2024-10-11 02:36 | PC.NURSE ---
Called hospitalist Dr. Lizama to inform patient has not voided much, bladder scan showed 437mls, MD ok to do in and out catheter. MD wants bladder scan to be done in the beginning of shift again and if patient continues to retain urine will place diamond catheter.
[2024-10-11 06:00] LABS: Basophils % (Auto) 1 % (0-2.5); Eosinophils # (Auto) 0.1 Thou/mm3 (0.0-0.5); Eosinophils % (Auto) 2 % (0-10); Hematocrit 40.4 % (41.0-53.0); Hemoglobin 13.4 g/dL (13.5-16.0); Immature Granulocytes % (Auto) 1 % (0-0); Immature Granulocytes Auto 0.04 Thou/mm3 (0.00-0.00); Lymphocytes # (Auto) 1.5 Thou/mm3 (1.0-4.8); Lymphocytes % (Auto) 19 % (10-50); Mean Corpuscular HGB Conc 33.2 g/dl (31.0-37.0); Mean Corpuscular Hemoglobin 31.7 pg (25.0-35.0); Mean Corpuscular Volume 96 fL (80-100); Monocytes # (Auto) 0.9 Thou/mm3 (0.0-0.8); Monocytes % (Auto) 11 % (0-12); Neutrophils # (Auto) 5.6 Thou/mm3 (1.8-7.7); Neutrophils % (Auto) 67 % (37-80); Nucleated Red Blood Cell % 0 /100 WBC (0); Platelet Count 160 Thou/mm3 (140-440); RDW Standard Deviation 48.5 fL (35.1-43.9); Red Blood Count 4.23 Miln/mm3 (4.50-5.90); White Blood Count 8.2 Thou/mm3 (3.8-10.6)
[2024-10-11] MEDS: HYDROcodone/APAP 5/325 TABLET 1 TAB PO ×2 (06:40→11:52)
[2024-10-11 07:12] LABS: Alanine Aminotransferase 8 U/L (10-49); Albumin, Serum 4.3 gm/dL (3.4-4.8); Albumin/Globulin Ratio 1.7 (1.2-2.2); Alkaline Phosphatase 135 U/L (46-116); Anion Gap 7 (7-16); Aspartate Amino Transferase 18 U/L (0-34); BUN/Creatinine Ratio 16 Ratio (12-20); Bilirubin,Total 0.3 mg/dL (0.3-1.2); Blood Urea Nitrogen 16 mg/dL (9-23); Carbon Dioxide 29.9 mMol/L (20.0-31.0); Chloride 99 mMol/L (98-107); Estimated Creatinine Clearance 85.2 mL/min (>60); Globulin 2.5 gm/dL (2.3-3.5); Glucose 94 mg/dL (74-106); Magnesium 1.8 mg/dL (1.6-2.6); Osmolality,Calculated 273 (275-295); Potassium 4.3 mMol/L (3.4-5.1); Sodium 136 mMol/L (136-145); Total Protein 6.8 gm/dL (5.7-8.2); eGFR > 60 See Note
[2024-10-11] MEDS: SENNA TABLET 1 TAB PO (08:37)
[2024-10-11] MEDS: levETIRAcetam INJ 100 MG/ML VIAL 5ML 1000 MG IVP ×2 (08:38→20:36)
[2024-10-11] MEDS: carBAMazepine 200 MG TABLET 600 MG PO ×2 (08:38→20:36)
[2024-10-11] MEDS: PANTOPRAZOLE INJ 40 MG VIAL IVP (08:39)
--- NOTE | 2024-10-11 10:42 | PC.PT ---
10/11/2024 PT eval performed. Patient reports having 4WW at home which is not recommended following hip surgery. highly recommend outpatient PT or homehealth services (SN, PT, OT) for safety in home when released.
--- NOTE | 2024-10-11 10:44 | PC.PT ---
UPDATE on 10/11/2024 PT recommendation UPDATED to SNF for rehab and safety to be able to retun home w/ lower risk of rehospitalization
[2024-10-11] MEDS: PRIMIDONE 50 MG TABLET 250 MG PO ×2 (14:29→21:04)
[2024-10-11] MEDS: MORPHINE SULF INJ 10 MG/ML VIAL 4 MG IV (15:28)
--- NOTE | 2024-10-11 19:00 | ESPR_ITS ---
Documentation for date of: 10/11/24 Subjective Subjective Interval history: Patient seen and examined at the bedside. Patient has no active cardiac complaints. Patient had successful left hip bipolar hemiarthroplasty with Justin implant on 10/10/2024 successfully without any cardiac applications. Vitals and labs reviewed and appear to be stable. Patient appears to have a history of hypertension and was on lisinopril or losartan previously. Recommend to restart losartan if the blood pressure continues to be high for the patient. Recommend adequate pain control. Exam Vital Signs Temp Pulse Resp BP Pulse Ox O2 Del Method 97.6 F 95 18 104/76 95 Room Air 10/11/24 20:00 10/11/24 20:00 10/11/24 20:00 10/11/24 20:00 10/11/24 20:00 10/11/24 20:00 Narrative Exam General: Alert and oriented x3. In no acute distress. Obese Eyes: Pupils are equal and reactive to light bilaterally. HEENT: Atraumatic, normocephalic. No JVD noted. Mucosa moist. Cardiovascular: Normal S1 and S2. Normal rate and regular rhythm. No murmurs appreciated. No peripheral pitting edema noted. Respiratory: No respiratory distress. Lungs are clear to auscultation bilaterally. No wheezing or crackles heard. Abdomen: Soft, nontender, nondistended. Skin: No rash. Warm to touch. Musculoskeletal: No gross injuries. Able to move all 4 extremities but limited left leg movement. Left hip dressing noted. Neuro: Alert and oriented x3. No focal neuro deficits. Psych: Normal affect and mood Objective Labs 10/12/24 05:12 10/11/24 05:17 Labs: Laboratory Results - last 24 hr 10/11/24 05:17 WBC 8.2 RBC 4.23 L Hgb 13.4 L Hct 40.4 L MCV 96 MCH 31.7 MCHC 33.2 RDW Std Deviation 48.5 H Plt Count 160 Neut % (Auto) 67 Lymph % (Auto) 19 [place] % (Auto) 11 Eos % (Auto) 2 Baso % (Auto) 1 Neut # (Auto) 5.6 Lymph # (Auto) 1.5 [place] # (Auto) 0.9 H Eos # (Auto) 0.1 Baso # (Auto) 0.0 Immature Gran # (Auto) 0.04 H Absolute Nucleated RBC 0.00 Immature Gran % 1 H Nucleated RBC % 0 Sodium 136 Potassium 4.3 Chloride 99 Carbon Dioxide 29.9 Anion Gap 7 BUN 16 Creatinine 1.0 Estim Creat Clear Calc 85.2 eGFR > 60 BUN/Creatinine Ratio 16 Glucose 94 Calculated Osmolality 273 L Calcium 9.0 Corrected Calcium 9.0 Magnesium 1.8 Total Bilirubin 0.3 AST 18 ALT 8 L Alkaline Phosphatase 135 H Total Protein 6.8 Albumin 4.3 Globulin 2.5 Albumin/Globulin Ratio 1.7 Assessment & Plan A&P Narrative 69-year-old male with past medical history of seizure disorder, hypertension, GERD and vitamin D deficiency who presented to [facility] on 10/09/2024 from home after ground-level mechanical fall for hip pain. #Acute displaced left femoral neck fracture #Status post ground-level mechanical fall Patient presented status post ground-level mechanical fall, after spilling on ice tea, denies hitting head, denies loss of consciousness, denies dizziness. Femur x-ray and hip pelvis x-ray significant for acute angulated displaced left femoral neck fracture, knee x-ray negative Cardiology consulted for presurgical cardiac clearance. EKG unremarkable, patient is no history of diabetes, hypertension, kidney disease, previous stroke or AK. Physical exam reassuring. Based on clinical assessment patient needs no further imaging or cardiac workup, he was cleared for surgery from cardiac perspective. Patient had successful left hip bipolar hemiarthroplasty with Justin implant on 10/10/2024 successfully without any cardiac applications. Vitals and labs reviewed and appear to be stable. Patient appears to have a history of hypertension and was on lisinopril or losartan previously. Recommend to restart losartan if the blood pressure continues to be high for the patient. Recommend adequate pain control. #Essential Hypertesnion #Seizure disorder #GERD #Elevated alk phos #hypokalemia Management of rest of the medical conditions as per primary team and other consultants. Thank you for the consult and allowing me to participate in the care of the patient. Cardiology will continue to follow. Kaushik Moreno M.D. Interventional Cardiology Time Spent With Patient Time: Total time spent is greater than 50% in coordination of care (as documented) at patient's floor/unit and/or counseling patient:
--- NOTE | 2024-10-11 19:50 | ESPR_ITS ---
Documentation for date of: 10/11/24 Subjective Subjective Interval history: Patient underwent ORIF by Dr. Matthews yesterday. Pain is controlled by morphine. Patient underwent PT and currently pending SNF placement. Exam Vital Signs Temp Pulse Resp BP Pulse Ox O2 Del Method 98.1 F 92 17 157/97 H 98 Room Air 10/11/24 16:00 10/11/24 16:20 10/11/24 16:00 10/11/24 16:00 10/11/24 16:00 10/11/24 16:00 Narrative Exam Constitutional Alert, oriented x 3 and comfortable. Elderly male, obese HEENT Vision grossly intact. Patent nares. Trachea midline Respiratory Chest normal on inspection and clear auscultation bilaterally Cardiovascular S1 and S2 audible, RRR. No murmurs carotid bruit. No gross JVD. Abdominal Soft and non tender to palpation in all quadrants. BS + Genitourinary No bladder tenderness, no flank pain. Normal to palpation Musculoskeletal Extremities tone within normal limits. Clean post-op dressing of left upper leg noted Neurological CN II - XII grossly intact. Extremity motor and sensation grossly intact. Skin Warm, dry and intact. No apparent lesions. Psychiatric Patient has good affect, is cooperative Objective Labs 10/11/24 05:17 10/11/24 05:17 Labs: Laboratory Results - last 24 hr 10/11/24 05:17 WBC 8.2 RBC 4.23 L Hgb 13.4 L Hct 40.4 L MCV 96 MCH 31.7 MCHC 33.2 RDW Std Deviation 48.5 H Plt Count 160 Neut % (Auto) 67 Lymph % (Auto) 19 [place] % (Auto) 11 Eos % (Auto) 2 Baso % (Auto) 1 Neut # (Auto) 5.6 Lymph # (Auto) 1.5 [place] # (Auto) 0.9 H Eos # (Auto) 0.1 Baso # (Auto) 0.0 Immature Gran # (Auto) 0.04 H Absolute Nucleated RBC 0.00 Immature Gran % 1 H Nucleated RBC % 0 Sodium 136 Potassium 4.3 Chloride 99 Carbon Dioxide 29.9 Anion Gap 7 BUN 16 Creatinine 1.0 Estim Creat Clear Calc 85.2 eGFR > 60 BUN/Creatinine Ratio 16 Glucose 94 Calculated Osmolality 273 L Calcium 9.0 Corrected Calcium 9.0 Magnesium 1.8 Total Bilirubin 0.3 AST 18 ALT 8 L Alkaline Phosphatase 135 H Total Protein 6.8 Albumin 4.3 Globulin 2.5 Albumin/Globulin Ratio 1.7 Quality Measures Quality Measures VTE prophylaxis Advance care planning discussed with:: other Assessment & Plan Assessment Current Active Medications: Generic Name Dose Route Start Last Admin Trade Name Freq PRN Reason Stop Dose Admin Acetaminophen 650 mg 10/09/24 22:09 Acetaminophen 325 Mg Tablet PO 11/08/24 22:08 Q6H PRN PAIN SCALE 1-3 (mild Hydrocodone Bitart/Acetaminophen 1 tab 10/09/24 22:09 10/11/24 11:52 Hydrocodone/Apap 5/325 Tablet PO 10/14/24 22:08 1 tab Q4HR PRN Administration PAIN SCALE 4-6 (Moderate Carbamazepine 600 mg 10/09/24 22:30 10/11/24 08:38 Carbamazepine 200 Mg Tablet PO 11/08/24 22:29 600 mg BID VALENTÍN Administration Levetiracetam 1,000 mg 10/09/24 22:15 10/11/24 08:38 Levetiracetam Inj 100 Mg/Ml Vial 5ml IVP 11/08/24 22:14 1,000 mg BID VALENTÍN Administration Morphine Sulfate 2 mg 10/09/24 22:09 10/10/24 05:30 Morphine Sulf Inj 10 Mg/Ml Vial IVP 10/14/24 22:08 2 mg Q4H PRN Administration PAIN SCALE 7-10 (Severe Morphine Sulfate 4 mg 10/10/24 18:04 10/11/24 15:28 Morphine Sulf Inj 10 Mg/Ml Vial IV 10/15/24 18:03 4 mg Q4HR PRN Administration PAIN RATED7-10 Ondansetron HCl 4 mg 10/09/24 22:09 Ondansetron Inj 2 Mg/Ml Inj 2 Ml IV 11/08/24 22:08 Q6H PRN NAUSEA OR VOMITING Protocol Pantoprazole Sodium 40 mg 10/10/24 09:00 10/11/24 08:39 Pantoprazole Inj 40 Mg Vial IVP 11/09/24 08:59 40 mg QDAY VALENTÍN Administration Primidone 250 mg 10/09/24 22:30 10/11/24 14:29 Primidone 50 Mg Tablet PO 10/14/24 22:29 250 mg TID VALENTÍN Administration Sennosides 1 tab 10/10/24 09:00 10/11/24 08:37 Senna Tablet PO 11/09/24 08:59 1 tab QDAY VALENTÍN Administration Protocol Plan Mr. Aviles is a 69-year-old male with past medical history of seizure disorder, hypertension, GERD and vitamin D deficiency who presented to [facility] on 10/09/2024 from home after ground-level mechanical fall for hip pain. Patient will be admitted for management and treatment of acute, displaced left femoral neck fracture. 1. Acute displaced left femoral neck fracture 2. Status post ground-level mechanical fall 3. s/p ORIF on 10/10/24 Patient presented status post ground-level mechanical fall, after spilling on ice tea, denies hitting head, denies loss of consciousness, denies dizziness. Femur x-ray and hip pelvis x-ray significant for acute angulated displaced left femoral neck fracture, knee x-ray negative Patient does report taking aspirin on and off at home for headache, not on any anticoagulation Patient underwent ORIF surgery by Dr. Dial on 10/10/24 Plan: ? Morphine for pain management ? Orthopedics, Dr Davis onboard. Appreciate recommendations 3. Hyperkalemia?resolving K5.9. Most likely secondary to muscle breakdown after hip fracture Plan: ? Kayexalate 30 g p.o. x 1 given ? Follow-up renal panel at 2 PM 4. Seizure disorder Patient follows closely with Dr. Roa neurologist for seizure disorder. Patient on Keppra 1000 mg twice daily, carbamazepine 600 mg 3 times daily and primidone to 50 mg 3 times daily. Plan: - Continue home medication carbamazepine 600 Mg p.o. twice daily ? Continue home medication primidone 250 Mg p.o. 3 times daily - Continue IV Keppra as patient is n.p.o. 5. GERD Patient has history of GERD, on omeprazole 20 mg daily at home Plan: ? Continue pantoprazole 40 Mg IV daily 6. Elevated alkaline phosphatase?improving Possibly in setting of acute left femoral neck fracture ALP 155 --> 137 Health maintenance: Disposition: Pending left hip hemiarthroplasty Diet: N.p.o. Lines: pIVs GI Prophylaxis: Pantoprazole IV Thrombo Prophylaxis: None Code status: FULL CODE This patient care was discussed with my attending Dr. Traci Tran MD PGY-2 Disclaimer: Minor errors in ux interaction designer may be present since this note was dictated by speech recognition software.
[2024-10-12] VITALS (8 sets, daily range): BP systolic 111–164; BP diastolic 61–92; PULSE 71–104; RESP 17–99; TEMP 36.4–37.2; O2SAT 96–99
[2024-10-12] MEDS: HYDROcodone/APAP 5/325 TABLET 1 TAB PO ×2 (04:11→10:40)
[2024-10-12] MEDS: PRIMIDONE 50 MG TABLET 250 MG PO ×3 (05:02→21:05)
[2024-10-12 06:01] LABS: Basophils # (Auto) 0.1 Thou/mm3 (0.0-0.2); Basophils % (Auto) 1 % (0-2.5); Eosinophils # (Auto) 0.2 Thou/mm3 (0.0-0.5); Eosinophils % (Auto) 2 % (0-10); Hematocrit 32.7 % (41.0-53.0); Hemoglobin 11.2 g/dL (13.5-16.0); Immature Granulocytes % (Auto) 1 % (0-0); Immature Granulocytes Auto 0.06 Thou/mm3 (0.00-0.00); Lymphocytes # (Auto) 0.9 Thou/mm3 (1.0-4.8); Lymphocytes % (Auto) 10 % (10-50); Mean Corpuscular HGB Conc 34.3 g/dl (31.0-37.0); Mean Corpuscular Hemoglobin 31.6 pg (25.0-35.0); Mean Corpuscular Volume 92 fL (80-100); Monocytes # (Auto) 0.8 Thou/mm3 (0.0-0.8); Monocytes % (Auto) 10 % (0-12); Neutrophils # (Auto) 6.6 Thou/mm3 (1.8-7.7); Neutrophils % (Auto) 77 % (37-80); Nucleated Red Blood Cell % 0 /100 WBC (0); Platelet Count 144 Thou/mm3 (140-440); RDW Standard Deviation 46.2 fL (35.1-43.9); Red Blood Count 3.54 Miln/mm3 (4.50-5.90); White Blood Count 8.6 Thou/mm3 (3.8-10.6)
[2024-10-12] MEDS: PANTOPRAZOLE INJ 40 MG VIAL IVP (08:42)
[2024-10-12] MEDS: carBAMazepine 200 MG TABLET 600 MG PO ×2 (08:43→21:06)
[2024-10-12] MEDS: levETIRAcetam INJ 100 MG/ML VIAL 5ML 1000 MG IVP (08:43)
[2024-10-12] MEDS: ASPIRIN EC 81 MG TABEC PO ×2 (08:43→21:06)
[2024-10-12] MEDS: SENNA TABLET 1 TAB PO (08:43)
[2024-10-12 12:19] LABS: Anion Gap 8 (7-16); Aspartate Amino Transferase 14 U/L (0-34); BUN/Creatinine Ratio 18 Ratio (12-20); Bilirubin,Total 0.4 mg/dL (0.3-1.2); Blood Urea Nitrogen 14 mg/dL (9-23); Calcium 8.6 mg/dL (8.3-10.6); Carbon Dioxide 28.2 mMol/L (20.0-31.0); Chloride 98 mMol/L (98-107); Creatinine (Component) 0.8 mg/dL (0.6-1.3); Estimated Creatinine Clearance 106.5 mL/min (>60); Glucose 100 mg/dL (74-106); Magnesium 1.7 mg/dL (1.6-2.6); Osmolality,Calculated 268 (275-295); Potassium 3.5 mMol/L (3.4-5.1); Sodium 134 mMol/L (136-145); eGFR > 60 See Note
[2024-10-12 12:21] LABS: Albumin, Serum 3.7 gm/dL (3.4-4.8); Albumin/Globulin Ratio 1.6 (1.2-2.2); Alkaline Phosphatase 104 U/L (46-116); Calcium (Corrected) 8.8 mg/dL (8.5-10.1); Globulin 2.3 gm/dL (2.3-3.5)
[2024-10-12 12:34] LABS: Alanine Aminotransferase < 7 U/L (10-49)
--- NOTE | 2024-10-12 13:53 | PC.SS ---
Betzy met with patient and his brother, Art. Per Art, he does not want his brother to go to [facility] in [place], instead, he would prefer [facility]. SUJATA contacted [facility] and she is able to accept patient tomorrow. SUJATA provided Art with information and pamphlet.
--- NOTE | 2024-10-12 14:22 | ESPR_ITS ---
<Statement entered by Buck Bowling MD - 10/13/24 16:31> Agree with plan and examination finding on the note below. Patient seen and examined at bedside today. Labs and imaging reviewed. Patient care discussed with my attending Dr. Aviles and co-resident . Documentation for date of: 10/12/24 Subjective Subjective Interval history: Patient was seen and examined at bedside this AM. No acute exents overnight. Patient tolerating diet, adequate urine output and mentation is at baseline. Patient says his left hip feels sore. Day 3 postop left hip bipolar hemiarthroplasty. Pending insurance authorization for discharge to acute rehab facility Started on aspirin 81 Mg p.o. twice daily Exam Vital Signs Temp Pulse Resp BP Pulse Ox O2 Del Method 97.9 F 87 18 115/79 96 Room Air 10/12/24 12:00 10/12/24 12:01 10/12/24 12:01 10/12/24 12:00 10/12/24 12:00 10/12/24 08:00 Narrative Exam Constitutional Alert, oriented x 3 and comfortable. Elderly male, obese HEENT Vision grossly intact. Patent nares. Trachea midline Respiratory Chest normal on inspection and clear auscultation bilaterally Cardiovascular S1 and S2 audible, RRR. No murmurs carotid bruit. No gross JVD. Abdominal Soft and non tender to palpation in all quadrants. BS + Genitourinary No bladder tenderness, no flank pain. Normal to palpation Musculoskeletal Extremities tone within normal limits. Clean post-op dressing of left upper leg noted Neurological CN II - XII grossly intact. Extremity motor and sensation grossly intact. Skin Warm, dry and intact. No apparent lesions. Psychiatric Patient has good affect, is cooperative Objective Labs 10/12/24 05:12 10/12/24 05:12 Labs: Laboratory Results - last 24 hr 10/12/24 05:12 WBC 8.6 RBC 3.54 L Hgb 11.2 L D Hct 32.7 L MCV 92 MCH 31.6 MCHC 34.3 RDW Std Deviation 46.2 H Plt Count 144 Neut % (Auto) 77 Lymph % (Auto) 10 [place] % (Auto) 10 Eos % (Auto) 2 Baso % (Auto) 1 Neut # (Auto) 6.6 Lymph # (Auto) 0.9 L [place] # (Auto) 0.8 Eos # (Auto) 0.2 Baso # (Auto) 0.1 Immature Gran # (Auto) 0.06 H Absolute Nucleated RBC 0.00 Immature Gran % 1 H Nucleated RBC % 0 Sodium 134 L Potassium 3.5 D Chloride 98 Carbon Dioxide 28.2 Anion Gap 8 BUN 14 Creatinine 0.8 Estim Creat Clear Calc 106.5 eGFR > 60 BUN/Creatinine Ratio 18 Glucose 100 Calculated Osmolality 268 L Calcium 8.6 Corrected Calcium 8.8 Magnesium 1.7 Total Bilirubin 0.4 AST 14 ALT < 7 L Alkaline Phosphatase 104 D Total Protein 6.0 Albumin 3.7 D Globulin 2.3 Albumin/Globulin Ratio 1.6 Quality Measures Quality Measures VTE prophylaxis Advance care planning discussed with:: patient Assessment & Plan Assessment Current Active Medications: Generic Name Dose Route Start Last Admin Trade Name Freq PRN Reason Stop Dose Admin Acetaminophen 650 mg 10/09/24 22:09 Acetaminophen 325 Mg Tablet PO 11/08/24 22:08 Q6H PRN PAIN SCALE 1-3 (mild Hydrocodone Bitart/Acetaminophen 1 tab 10/09/24 22:09 10/12/24 10:40 Hydrocodone/Apap 5/325 Tablet PO 10/14/24 22:08 1 tab Q4HR PRN Administration PAIN SCALE 4-6 (Moderate Aspirin 81 mg 10/12/24 09:00 10/12/24 08:43 Aspirin Ec 81 Mg Tabec PO 11/11/24 08:59 81 mg BID VALENTÍN Administration Carbamazepine 600 mg 10/09/24 22:30 10/12/24 08:43 Carbamazepine 200 Mg Tablet PO 11/08/24 22:29 600 mg BID VALENTÍN Administration Levetiracetam 1,000 mg 10/09/24 22:15 10/12/24 08:43 Levetiracetam Inj 100 Mg/Ml Vial 5ml IVP 11/08/24 22:14 1,000 mg BID VALENTÍN Administration Morphine Sulfate 4 mg 10/10/24 18:04 10/11/24 15:28 Morphine Sulf Inj 10 Mg/Ml Vial IV 10/15/24 18:03 4 mg Q4HR PRN Administration PAIN RATED7-10 Ondansetron HCl 4 mg 10/09/24 22:09 Ondansetron Inj 2 Mg/Ml Inj 2 Ml IV 11/08/24 22:08 Q6H PRN NAUSEA OR VOMITING Protocol Pantoprazole Sodium 40 mg 10/10/24 09:00 10/12/24 08:42 Pantoprazole Inj 40 Mg Vial IVP 11/09/24 08:59 40 mg QDAY VALENTÍN Administration Primidone 250 mg 10/09/24 22:30 10/12/24 05:02 Primidone 50 Mg Tablet PO 10/14/24 22:29 250 mg TID VALENTÍN Administration Sennosides 1 tab 10/10/24 09:00 10/12/24 08:43 Senna Tablet PO 11/09/24 08:59 1 tab QDAY VALENTÍN Administration Protocol Plan Mr. Aviles is a 69-year-old male with past medical history of seizure disorder, hypertension, GERD and vitamin D deficiency who presented to [facility] on 10/09/2024 from home after ground-level mechanical fall for hip pain. Patient will be admitted for management and treatment of acute, displaced left femoral neck fracture. 1. Acute displaced left femoral neck fracture s/p left hip bipolar hemiarthroplasty on 10/10/2024 2. Status post ground-level mechanical fall Patient presented status post ground-level mechanical fall, after spilling on ice tea, denies hitting head, denies loss of consciousness, denies dizziness. Femur x-ray and hip pelvis x-ray significant for acute angulated displaced left femoral neck fracture, knee x-ray negative Patient does report taking aspirin on and off at home for headache, not on any anticoagulation Patient underwent ORIF surgery by Dr. Dial on 10/10/24 Plan: ? Morphine for pain management ? Started on aspirin 81 Mg p.o. twice daily for DVT prophylaxis as per orthopedic recommendations ? Pending insurance authorization for discharge to acute rehab ? Orthopedics, Dr Davis onboard. Appreciate recommendations 3. Hyperkalemia?resolved K5.9 --> 3.5 4. Seizure disorder Patient follows closely with Dr. Roa neurologist for seizure disorder. Patient on Keppra 1000 mg twice daily, carbamazepine 600 mg 3 times daily and primidone to 50 mg 3 times daily. Plan: ? Discontinued Keppra IV and started on Keppra 1000 Mg p.o. twice daily as patient no longer NPO - Continue home medication carbamazepine 600 Mg p.o. twice daily ? Continue home medication primidone 250 Mg p.o. 3 times daily 5. GERD Patient has history of GERD, on omeprazole 20 mg daily at home Plan: ? Continue pantoprazole 40 Mg IV daily 6. Elevated alkaline phosphatase?improving Possibly in setting of acute left femoral neck fracture ALP 155 --> 137 Health maintenance: Disposition: Pending insurance authorization for acute rehab placement. Anticipate discharge within next 24 hours. Diet: Regular Lines: pIVs GI Prophylaxis: Pantoprazole IV Thrombo Prophylaxis: ASA 81 Mg p.o. twice daily Code status: FULL CODE Plan of care discussed with Attending Dr. Aviles and PGY3 Dr. Dash Olivas MD PGY 1
--- NOTE | 2024-10-12 20:01 | PD.IMPROG ---
Documentation for date of: 10/12/24 Subjective Subjective Interval history: Patient seen and examined at the bedside. Patient has no active cardiac complaints. Patient had successful left hip bipolar hemiarthroplasty with Justin implant on 10/10/2024 successfully without any cardiac complications. Vitals and labs reviewed and appear to be stable. Patient appears to have a history of hypertension and was on lisinopril or losartan previously. Recommend to restart losartan if the blood pressure continues to be high for the patient. Recommend adequate pain control. Restarted aspirin 81 mg daily. Exam Vital Signs Temp Pulse Resp BP Pulse Ox O2 Del Method 98.3 F 93 17 164/61 H 98 Room Air 10/12/24 16:00 10/12/24 16:00 10/12/24 16:00 10/12/24 16:00 10/12/24 16:10/12/24 16:00 Narrative Exam General: Alert and oriented x3. In no acute distress. Obese Eyes: Pupils are equal and reactive to light bilaterally. HEENT: Atraumatic, normocephalic. No JVD noted. Mucosa moist. Cardiovascular: Normal S1 and S2. Normal rate and regular rhythm. No murmurs appreciated. No peripheral pitting edema noted. Respiratory: No respiratory distress. Lungs are clear to auscultation bilaterally. No wheezing or crackles heard. Abdomen: Soft, nontender, nondistended. Skin: No rash. Warm to touch. Musculoskeletal: No gross injuries. Able to move all 4 extremities but limited left leg movement. Left hip dressing noted. Neuro: Alert and oriented x3. No focal neuro deficits. Psych: Normal affect and mood Objective Labs 10/12/24 05:12 10/12/24 05:12 Labs: Laboratory Results - last 24 hr 10/12/24 05:12 WBC 8.6 RBC 3.54 L Hgb 11.2 L D Hct 32.7 L MCV 92 MCH 31.6 MCHC 34.3 RDW Std Deviation 46.2 H Plt Count 144 Neut % (Auto) 77 Lymph % (Auto) 10 [place] % (Auto) 10 Eos % (Auto) 2 Baso % (Auto) 1 Neut # (Auto) 6.6 Lymph # (Auto) 0.9 L [place] # (Auto) 0.8 Eos # (Auto) 0.2 Baso # (Auto) 0.1 Immature Gran # (Auto) 0.06 H Absolute Nucleated RBC 0.00 Immature Gran % 1 H Nucleated RBC % 0 Sodium 134 L Potassium 3.5 D Chloride 98 Carbon Dioxide 28.2 Anion Gap 8 BUN 14 Creatinine 0.8 Estim Creat Clear Calc 106.5 eGFR > 60 BUN/Creatinine Ratio 18 Glucose 100 Calculated Osmolality 268 L Calcium 8.6 Corrected Calcium 8.8 Magnesium 1.7 Total Bilirubin 0.4 AST 14 ALT < 7 L Alkaline Phosphatase 104 D Total Protein 6.0 Albumin 3.7 D Globulin 2.3 Albumin/Globulin Ratio 1.6 Assessment & Plan A&P Narrative 69-year-old male with past medical history of seizure disorder, hypertension, GERD and vitamin D deficiency who presented to [facility] on 10/09/2024 from home after ground-level mechanical fall for hip pain. #Acute displaced left femoral neck fracture #Status post ground-level mechanical fall Patient presented status post ground-level mechanical fall, after spilling on ice tea, denies hitting head, denies loss of consciousness, denies dizziness. Femur x-ray and hip pelvis x-ray significant for acute angulated displaced left femoral neck fracture, knee x-ray negative Cardiology consulted for presurgical cardiac clearance. EKG unremarkable, patient is no history of diabetes, hypertension, kidney disease, previous stroke or LA. Physical exam reassuring. Based on clinical assessment patient needs no further imaging or cardiac workup, he was cleared for surgery from cardiac perspective. Patient had successful left hip bipolar hemiarthroplasty with Justin implant on 10/10/2024 successfully without any cardiac applications. Vitals and labs reviewed and appear to be stable. Patient appears to have a history of hypertension and was on lisinopril or losartan previously. Recommend to restart losartan if the blood pressure continues to be high for the patient. Recommend adequate pain control. Restarted aspirin 81 mg daily #Essential Hypertesnion #Seizure disorder #GERD #Elevated alk phos #hypokalemia Management of rest of the medical conditions as per primary team and other consultants. Thank you for the consult and allowing me to participate in the care of the patient. Cardiology will continue to follow. Kaushik Moreno M.D. Interventional Cardiology Time Spent With Patient Time: Total time spent is greater than 50% in coordination of care (as documented) at patient's floor/unit and/or counseling patient:
[2024-10-12] MEDS: levETIRAcetam 250 MG TABLET 1000 MG PO (21:06)
[2024-10-13] VITALS: BP 146/87; PULSE 100; PULSE 88; RESP 20; TEMP 36.6; O2SAT 96
[2024-10-13 04:00] VITALS: BP 126/86; PULSE 100; PULSE 95; RESP 18; TEMP 36.4; O2SAT 97
[2024-10-13] MEDS: PRIMIDONE 50 MG TABLET 250 MG PO (05:22)
[2024-10-13 06:05] LABS: Basophils # (Auto) 0.1 Thou/mm3 (0.0-0.2); Basophils % (Auto) 1 % (0-2.5); Eosinophils # (Auto) 0.1 Thou/mm3 (0.0-0.5); Eosinophils % (Auto) 2 % (0-10); Hematocrit 33.7 % (41.0-53.0); Hemoglobin 11.3 g/dL (13.5-16.0); Immature Granulocytes % (Auto) 1 % (0-0); Immature Granulocytes Auto 0.04 Thou/mm3 (0.00-0.00); Lymphocytes % (Auto) 12 % (10-50); Mean Corpuscular HGB Conc 33.5 g/dl (31.0-37.0); Mean Corpuscular Hemoglobin 31.1 pg (25.0-35.0); Mean Corpuscular Volume 93 fL (80-100); Monocytes # (Auto) 0.8 Thou/mm3 (0.0-0.8); Monocytes % (Auto) 10 % (0-12); Neutrophils % (Auto) 75 % (37-80); Nucleated Red Blood Cell % 0 /100 WBC (0); Platelet Count 140 Thou/mm3 (140-440); RDW Standard Deviation 45.8 fL (35.1-43.9); Red Blood Count 3.63 Miln/mm3 (4.50-5.90)
--- NOTE | 2024-10-13 07:48 | ESDS_ITS ---
<Statement entered by Buck Bowling MD - 10/14/24 17:15> Agree with plan and examination finding on the note below. Patient seen and examined at bedside today. Labs and imaging reviewed. Patient care discussed with my attending Dr. Aviles and co-resident Dr. Olivas. Planned Discharge Date 10/13/24 DS: Providers Provider Date of admission: 10/09/24 22:09 Primary care physician: Juan Asencio MD Admitting Provider: Sage Perez MD Attending Provider on Admission: Ramez Aviles MD Consults: 10/10/24 14:39 Consult to Orthopedic Routine Comment: Consulting Provider: Jaun Davis 10/10/24 18:04 Referral Physical Therapy Routine Comment: Gait Training Physician Instructions: Instructions: both legs full weight bear. Left hip precaution Attending Provider on DC: Ramez Aviles MD Discharging Provider: Fernando Olivas MD DS: Diagnosis Problem List Completed Was Problem List Reviewed/Reconciled?: Yes Hospital Course Hospital Course Hospital course: Mr. Aviles is a 69-year-old male with past medical history of seizure disorder, hypertension, GERD and vitamin D deficiency who presented to [facility] on 10/09/2024 from home after ground-level mechanical fall for hip pain. Patient will be admitted for management and treatment of acute, displaced left femoral neck fracture. For patient's acute displaced left femoral neck fracture, orthopedics Dr. Davis was consulted. Surgery on 10/10/2024 at hip bipolar hemiarthroplasty was performed. Postop patient worked with physiotherapy who recommended acute rehab. Orthopedics recommended DVT prophylaxis with aspirin 81 Mg p.o. twice daily for 2 weeks. He also recommended to follow-up within 2-3 weeks. All patient's labs are now returning to his baseline. Patient is now clinically stable and fit for discharge to acute rehab. Discharge diagnoses: 1. Acute displaced left femoral neck fracture s/p left hip bipolar hemiarthroplasty on 10/10/2024 2. Status post ground-level mechanical fall 3. Hyperkalemia?resolved 4. Seizure disorder 5. GERD 6. Alkaline phosphatase?improving Discharge plan: -Please follow up with Dr. Dial within x1 week of discharge -Take [place] for pain as needed -Take aspirin 1 tablet twice a day for 2 weeks. -Full weight bear, left hip precautions -Dressing change every third day -If fever, chills, worsening symptoms please go to your nearest ED/Hospital We are grateful to be able to participate in Mr. Aviles' care. We wish him the best. Plan of care discussed with Attending Dr. Aviles and PGY3 Dr. Dash Olivas MD PGY 1 Time Spent with Patient Time attestation: Total time spent providing and/or coordinating discharge services: Time spent: Greater than 30 minutes (34) Exam Vital Signs Temp Pulse Resp BP Pulse Ox O2 Del Method 97.6 F 100 18 126/86 H 97 Room Air 10/13/24 04:00 10/13/24 04:00 10/13/24 04:00 10/13/24 04:00 10/13/24 04:00 10/13/24 04:00 Narrative Exam Constitutional Alert, oriented x 3 and comfortable. Elderly male, obese HEENT Vision grossly intact. Patent nares. Trachea midline Respiratory Chest normal on inspection and clear auscultation bilaterally Cardiovascular S1 and S2 audible, RRR. No murmurs carotid bruit. No gross JVD. Abdominal Soft and non tender to palpation in all quadrants. BS + Genitourinary No bladder tenderness, no flank pain. Normal to palpation Musculoskeletal Extremities tone within normal limits. Clean post-op dressing of left upper leg noted Neurological CN II - XII grossly intact. Extremity motor and sensation grossly intact. Skin Warm, dry and intact. No apparent lesions. Psychiatric Patient has good affect, is cooperative Discharge Plan Plan Patient Disposition: Xfer Skilled Nsg Fac (SNF) Prescriptions/Referrals Prescriptions/Med Rec: New aspirin 81 mg tablet,chewable 81 mg PO BID Qty: 14 0RF hydrocodone-acetaminophen 5-300 mg tablet 1 tab PO Q8H MDD 15mg PRN (Reason: pain) Qty: 14 0RF Continued primidone [Mysoline] 250 MG tablet 250 mg PO TID Qty: 0 omeprazole 20 MG capsule,delayed release(DR/EC) 20 mg PO QDAY Qty: 0 cholecalciferol (vitamin D3) [Vitamin D3] 2,000 UNIT capsule 2,000 unit PO QDAY Qty: 0 carbamazepine [Epitol] 200 MG tablet 600 mg PO BID Qty: 0 albuterol sulfate [ProAir HFA] 8.5 GM HFA aerosol inhaler 2 puff Inhalation Q6HR PRN (Reason: SHORTNESS OF BREATH OR WHEEZE) Qty: 1 0RF levetiracetam 1,000 mg tablet 1,000 mg PO Q12H Patient Comments: TAKE 1 TABLET BY MOUTH TWICE A DAY docusate sodium 250 mg capsule 250 mg PO QDAY PRN (Reason: constipation) Discontinued aspirin 81 MG tablet,chewable 81 mg PO QDAY Qty: 0 levetiracetam [Keppra] 500 MG tablet 500 mg PO BID Qty: 0 acetaminophen 500 mg tablet 500 mg PO Q6H PRN (Reason: pain) Patient Comments: TAKE 1 TABLET BY MOUTH EVERY 6 HOURS NEEDED FOR 10 DAYS No Action Losartan Potassium * (COZAAR *) 25 MG tablet 25 mg PO QDAY Qty: 0 lisinopril 10 MG tablet 10 mg PO QDAY Qty: 30 0RF Referrals: Juan Asencio MD [Primary Care Provider] - Jaun Davis MD [Physician] - Patient/Caregiver Discharge Instructions Other Discharge Activity Instructions:: Please follow up with Dr. Dial within x1 week of discharge Take [place] for pain as needed take aspirin 1 tablet twice a day for 2 weeks. Full weight bear, left hip precautions Dressing change every third day If fever, chills, worsening symptoms please go to your nearest ED/Hospital Education Materials: Surgery Anesthesia After, Preventing Surgical Site Infections Print Language: Kuwaiti Stand Alone Forms: [employer] Award Info., Patient Portal Info Letter Discharge Order Discharge Orders: Discharge (Routine); Ordered 10/13/24 Ordered By: Fernando Olivas Quality Discharge Quality Measures VTE prophylaxis
[2024-10-13 08:00] VITALS: BP 131/77; PULSE 86; RESP 18; TEMP 36.3; O2SAT 97
[2024-10-13] MEDS: SENNA TABLET 1 TAB PO (08:35)
[2024-10-13] MEDS: levETIRAcetam 250 MG TABLET 1000 MG PO (08:35)
[2024-10-13] MEDS: ASPIRIN EC 81 MG TABEC PO (08:35)
[2024-10-13] MEDS: carBAMazepine 200 MG TABLET 600 MG PO (08:36)
[2024-10-13] MEDS: PANTOPRAZOLE INJ 40 MG VIAL IVP (08:36)
[2024-10-13 11:25] VITALS: BMI 11.0
--- NOTE | 2024-10-13 11:52 | PC.SS ---
Follow up note: SS was informed by bedside nurse pt has d/c orders and ready for d/c. SS met with pt and spoke to caregiver, Donna to confirm d/c to [facility] (aka [facility]). SS has also spoken to patient's brother and informed him pt will be dc around 1pm ot [facility]. SS has setup gurney transportation with N[facility] from [employer] and SS requested [facility]. Ref# [id number]. has sent patient's facesheet and ambulance form using [facility]. SS spoke to [facility] who has confirmed she has received call from [employer] and transportation is set for 1pm to [facility]. Pt is aware, bedside nurse, Ramone is aware. SS left voicemail for patient's caregiver, Donna. Brother, Art is aware. Fatoumata from [facility] is aware.
[2024-10-13 12:00] VITALS: BP 141/78; PULSE 86; RESP 18; TEMP 36.2; O2SAT 96
--- NOTE | 2024-10-13 12:50 | PC.NURSE ---
RN called report to [facility] 10/13 @ 1250 pm. ETA for transportation to pick pt up is 1400.
== END 2024-10-13 13:20 | disposition skilled nursing facility (03) | DRG 522 ==
LOC: SERX 23:10 → SERHOLD 23:22 → S3NX 10-10 00:46
PROVIDERS: Orthopaedic Surgery; Admitting Provider Student in an Organized Health Care Education/Training Program; Emergency Provider Emergency Medicine; PCP Family Medicine; Visit Provider Internal Medicine
PROC: 0SRR0JZ Replacement of Right Hip Joint, Femoral Surface with Synthetic Substitute, Open Approach (ICD-10-PCS; CPT 27125; principal; 2024-10-10 15:45)
DX: S72.002A Fracture of unspecified part of neck of left femur, initial encounter for closed fracture (principal); G40.909 Epilepsy, unspecified, not intractable, without status epilepticus; W01.0XXA Fall on same level from slipping, tripping and stumbling without subsequent striking against object, initial encounter; Y92.000 Kitchen of unspecified non-institutional (private) residence as the place of occurrence of the external cause; Y93.01 Activity, walking, marching and hiking; K21.9 Gastro-esophageal reflux disease without esophagitis; I10 Essential (primary) hypertension; R74.8 Abnormal levels of other serum enzymes; E55.9 Vitamin D deficiency, unspecified; Z88.8 Allergy status to other drugs, medicaments and biological substances; Z87.891 Personal history of nicotine dependence; E87.5 Hyperkalemia; Z79.899 Other long term (current) drug therapy; E87.6 Hypokalemia
CPT/HCPCS: 36415; 71045; 73501; 73503; 73552; 73562; 80053; 80061; 80069; 83735; 84100; 84443; 85025; 85610; 85730; 86850; 86900; 86901; 86923; 93225; 97162; J0131; J0612; J0689; J0690; J1100; J1580; J1885; J1953; J2270; J2371; J2405; J2470; J2704; J3010; J3490; A9270

== ENCOUNTER 2024-11-09 11:42 | Emergency (ER) | payer MEDICARE, MEDICAID, SELFPAY ==
[2024-11-09] VITALS (8 sets, daily range): BP systolic 123–148; BP diastolic 68–84; PULSE 69–88; RESP 15–22; TEMP 36.6–36.9; O2SAT 96–100; BMI 34.5
--- NOTE | 2024-11-09 11:59 | XR_ITS ---
EXAMINATION: CT head/brain wo con ORDERING PROVIDER: Shelley Davis NP HISTORY: seizure TECHNIQUE: CT scanner was used in the volumetric, helical non-contrast acquisition of the head with 2-D and 3-D reformats created on a separate workstation and submitted for interpretation. Institutional dose reducing protocols were utilized. Imaging is mildly motion degraded. RADIATION DOSE: DLP 1216 mGy-cm COMPARISON: 07/14/2024, CT head. FINDINGS: BRAIN: No acute intracranial hemorrhage, mass effect, or midline shift. Mild to moderate frontoparietal predominant parenchymal volume loss. MARSHALL-WHITE DIFFERENTIATION: Similar moderate scattered periventricular and subcortical white matter hypodensities. These are nonspecific, but can be seen with chronic small vessel ischemic changes. EXTRA-AXIAL SPACES: No abnormal collection. SULCI: Normal. VENTRICLES: Normal. BASAL CISTERNS: Normal. VESSELS: No hyperdense vessel sign. DURAL VENOUS SINUSES: Symmetric attenuation. POSTERIOR FOSSA: Mild to moderate vermian atrophy. MASTOID AIR CELLS: Clear. PARANASAL SINUSES: Clear. ORBITS: Normal. BONES: Normal. SCALP: Normal. IMPRESSION: 1. No acute intracranial hemorrhage, mass effect, or midline shift. 2. Mild to moderate frontoparietal predominant cerebral volume loss. 3. Findings which can be seen with chronic small vessel ischemic changes. 4. Mild to moderate vermian atrophy, nonspecific, but can be seen with chronic alcohol use.
--- NOTE | 2024-11-09 12:02 | EKG_ITS ---
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
--- NOTE | 2024-11-09 12:02 | XR_ITS ---
EXAMINATION: XR chest 1V ORDERING PROVIDER: Shelley Davis NP HISTORY: altered TECHNIQUE: Single portable AP radiograph of the chest. COMPARISON: 10/09/2024, chest radiographs. FINDINGS: Lines and Tubes: Overlying monitoring leads. Lungs: No consolidation. Pleura: No pneumothorax or pleural effusion. Cardiomediastinal Silhouette: Normal. Soft Tissues/Bones: Normal. IMPRESSION: No acute pulmonary findings.
--- NOTE | 2024-11-09 12:05 | PD.EDAMS ---
Altered Mental Status RME/HPI General Chief Complaint: Seizure Stated Complaint: SEIZURE, AMS Time Seen by Provider: 11/09/24 11:45 Arrival date/time: 11/09/24 11:42 This is a 69-year-old male that is brought in by ambulance with complaints of altered level consciousness and bradycardia. Per EMS they were initially called to [facility] where patient is staying because of bradycardia. Per EMS staff report that patient's heart rate was 45 bpm. Upon their arrival patient's heart rate was within normal limits but patient was altered. According to his EMS he was awake and looking at them but not responding to questions. Per EMS after a few minutes patient was alert and oriented x 4. Patient has no complaints at this time and in fact says he was supposed to be discharged today. Patient has a history of seizures he takes carbamazepine and Keppra. Patient also has a history of high blood pressure. Patient denies fever chills, nausea, vomiting, diarrhea, urinary symptoms, URI symptoms. Patient recently had a displaced fracture of the base of the neck of left femur Related Data Home Medications ?Medication ?Instructions ?Recorded ?Confirmed Losartan Potassium * (COZAAR *) 25 mg PO QDAY #0 tabs 06/26/17 10/10/24 Held on 10/10/24. Instructions: Doctor's Order cholecalciferol (vitamin D3) 50 2,000 unit PO QDAY #0 caps 06/26/17 10/10/24 mcg (2,000 unit) capsule (Vitamin D3) omeprazole 20 mg capsule,delayed 20 mg PO QDAY ##0 06/26/17 10/09/24 release primidone 250 mg tablet (Mysoline) 250 mg PO TID #0 tabs 06/26/17 10/09/24 carbamazepine 200 mg tablet 600 mg PO BID ##0 09/14/17 10/10/24 (Epitol) levetiracetam 1,000 mg tablet 1,000 mg PO Q12H 10/09/24 10/09/24 docusate sodium 250 mg capsule 250 mg PO QDAY PRN constipation 10/10/24 10/10/24 Previous Rx's ?Medication ?Instructions ?Recorded lisinopril 10 mg tablet 10 mg PO QDAY #30 tabs 06/26/17 Held on 10/10/24. Instructions: Doctor's Order albuterol sulfate 90 mcg/actuation 2 puff inhalation Q6HR PRN 09/14/17 aerosol inhaler (ProAir HFA) SHORTNESS OF BREATH OR WHEEZE #1 inh aspirin 81 mg chewable tablet 81 mg PO BID #14 tabs 10/11/24 hydrocodone 5 mg-acetaminophen 300 1 tab PO Q8H PRN pain #14 tabs 10/11/24 mg tablet cephalexin 500 mg capsule 500 mg PO TID 7 days #21 caps 11/09/24 cephalexin 500 mg capsule 500 mg PO TID 7 days #21 caps 11/09/24 Allergies Allergy/AdvReac Type Severity Reaction Status Date / Time divalproex sodium Allergy Mild Seizure Verified 10/10/24 17:11 diazepam AdvReac Mild Seizure Verified 10/10/24 17:11 Review of Systems Review of Systems Systems Reviewed: All systems reviewed, normal except as documented Past Medical History Past Medical History Comments PMH COMMENT: PMH: Positive for seizure disorder, GERD and vitamin D deficiency PSHx: Positive for surgery on left leg Allergies: Allergic to divalproex and diazepam Social history: -Smoking: Positive for occasional smoking in past, denies any heavy smoking -Alcohol Use: Denies -Illicit Drug Use: Denies Family History: No history of heart disease or stroke ED Exam General General appearance: Present alert and in no apparent distress Head Head exam: Present atraumatic Eye Eye exam: Present normal appearance, PERRL and EOMI ENT ENT exam: Present normal exam, normal oropharynx and mucous membranes moist Neck Neck exam: Present normal inspection, full ROM and trachea midline Chest Chest inspection: Present normal inspection and symmetric chest wall rise Respiratory Respiratory exam: Present normal lung sounds bilaterally Cardiovascular Cardiovascular exam: Present regular rate and normal rhythm Abdominal Exam Abdominal exam: Present soft Extremities Exam Extremities exam: Present normal inspection and full ROM Back Exam Back exam: Present normal inspection and full ROM Neurological Exam Neurological exam: Present alert, oriented X3 and CN II-XII intact Psychiatric Psychiatric exam: Present normal affect and normal mood Skin Skin exam: Present warm, dry, intact and normal color Course Quality Measures none Orders Category Date Time Status EKG (ED ONLY) *Do not use* NOW Care 11/09/24 12:[address] head/brain wo con Stat Exams 11/09/24 11:59 Completed EKG (ED Only) Stat Exams 11/09/24 12:02 Draft XR chest 1V Stat Exams 11/09/24 12:02 Completed BNP [B-Type Natriuretic Peptide] Stat Lab 11/09/24 12:24 Completed CBC Stat Lab 11/09/24 12:24 Completed Comprehensive Metabolic Panel Stat Lab 11/09/24 12:24 Completed Levetiracetam (Keppra)* Stat Lab 11/09/24 16:55 Completed PT [Prothrombin Time with INR] Stat Lab 11/09/24 12:24 Completed Troponin I Stat Lab 11/09/24 12:24 Completed Urinalysis, C/S if Indicated Stat Lab 11/09/24 15:01 Completed Urine Culture Stat Lab 11/09/24 15:01 Completed Primidone [Mysoline] Med 11/09/24 20:57 Discontinued 250 mg PO X1 ONE carBAMazepine [TEGretol] Med 11/09/24 20:57 Discontinued 600 mg PO X1 ONE cefTRIAXone [Rocephin] 1,000 mg Med 11/09/24 15:51 Discontinued SODIUM CHLORIDE 0.9% (Popper) [Ns 0.9% (P)] 50 ml IV X1 Vital Signs Vital signs: Vital Signs Temperature 98.0 F 11/09/24 12:01 Pulse Rate 88 11/09/24 12:01 Respiratory Rate 15 11/09/24 12:01 Blood Pressure 123/79 11/09/24 12:01 Pulse Oximetry (%) 100 11/09/24 12:01 Oxygen Delivery Method Room Air 11/09/24 12:01 Procedures -ED EKG Interpretation #1: Date of EK11/09/24 Time of EK:19 Rate: 82 Interpretation: Interpreted by me (SINUS RHYTHM INTRAVENTRICULAR DELAY ) EKG Impression: No ectopy and Normal intervals Altered Mental Status MDM Narrative MDM Narrative:: chest x ray: FINDINGS: Lines and Tubes: Overlying monitoring leads. Lungs: No consolidation. Pleura: No pneumothorax or pleural effusion. Cardiomediastinal Silhouette: Normal. Soft Tissues/Bones: Normal. IMPRESSION: No acute pulmonary findings. ct head: FINDINGS: BRAIN: No acute intracranial hemorrhage, mass effect, or midline shift. Mild to moderate frontoparietal predominant parenchymal volume loss. MARSHALL-WHITE DIFFERENTIATION: Similar moderate scattered periventricular and subcortical white matter hypodensities. These are nonspecific, but can be seen with chronic small vessel ischemic changes. EXTRA-AXIAL SPACES: No abnormal collection. SULCI: Normal. VENTRICLES: Normal. BASAL CISTERNS: Normal. VESSELS: No hyperdense vessel sign. DURAL VENOUS SINUSES: Symmetric attenuation. POSTERIOR FOSSA: Mild to moderate vermian atrophy. MASTOID AIR CELLS: Clear. PARANASAL SINUSES: Clear. ORBITS: Normal. BONES: Normal. SCALP: Normal. IMPRESSION: 1. No acute intracranial hemorrhage, mass effect, or midline shift. 2. Mild to moderate frontoparietal predominant cerebral volume loss. 3. Findings which can be seen with chronic small vessel ischemic changes. 4. Mild to moderate vermian atrophy, nonspecific, but can be seen with chronic alcohol use. Patient's vital signs stable. Patient's mental status is back to baseline. CBC unremarkable BMP unremarkable troponin unremarkable BNP unremarkable. Urine shows UTI. Will treat for UTI. It is likely patient had a seizure today. Per patient he used to have frequent seizures but recently has not been having seizures. Will treat patient for UTI and send for culture. Patient feels comfortable going back to long-term. Patient data External records reviewed:: [facility] previous records Clinical information provided by:: patient Social determinants that could affect healthcare access:: none Patient has the following chronic illnesses:: see hpi How is presenting disease/condition affected by chronic disease/condition?: exacerbated by Evaluation data The following diagnostics were reviewed and interpreted by me:: lab results, radiology exam(s) and EKG tracing(s) Lab and/or radiology exams considered but not ordered:: none Interpretation Summary: see note Medications / Prescriptions Medications or Prescriptions considered but not ordered:: none Medication administrations:: Medication Administration History Discontinued Medications Carbamazepine (Carbamazepine 100 Mg Chew) 600 mg PO X1 ONE Stop: 11/09/24 20:58 Last Admin: 11/09/24 21:24 Dose: 600 mg Documented By: DOMO Ceftriaxone Sodium 1,000 mg/ (Sodium Chloride) 50 mls @ 100 mls/hr IV X1 ONE Stop: 11/09/24 16:20 Last Infusion: 11/09/24 16:48 Dose: Infused Documented By: Admin: 11/09/24 16:16 Dose: 100 mls/hr Documented By: LUZ Primidone (Primidone 50 Mg Tablet) 250 mg PO X1 ONE Stop: 11/09/24 20:58 Last Admin: 11/09/24 21:24 Dose: 250 mg Documented By: DOMO see [facility] Consultations Consultation(s) initiated? (list below): No Diagnosis Most likely diagnosis given after review of the tests above:: uti Admission Indicated Admission indicated?: not indicated Admission Request Was there a request for admission?: No Disposition Plan Disposition Plan: Discharge Discharge Attestation Discharge Attestation: The patient and all family members were given an opportunity to ask questions and understood the discharge instructions. Discharge instructions specifically effects, indications for sooner follow up or return to the emergency department, and the expected course of current diagnosis. Patient condition: Stable Discharge Plan Plan Patient Disposition: HOME (Self Care) Patient condition on transfer: Stable Prescriptions/Referrals Prescriptions/Med Rec: New cephalexin 500 mg capsule 500 mg PO TID 7 Days Qty: 21 0RF cephalexin 500 mg capsule 500 mg PO TID 7 Days Qty: 21 0RF No Action primidone [Mysoline] 250 MG tablet 250 mg PO TID Qty: 0 omeprazole 20 MG capsule,delayed release(DR/EC) 20 mg PO QDAY Qty: 0 cholecalciferol (vitamin D3) [Vitamin D3] 2,000 UNIT capsule 2,000 unit PO QDAY Qty: 0 Losartan Potassium * (COZAAR *) 25 MG tablet 25 mg PO QDAY Qty: 0 lisinopril 10 MG tablet 10 mg PO QDAY Qty: 30 0RF carbamazepine [Epitol] 200 MG tablet 600 mg PO BID Qty: 0 albuterol sulfate [ProAir HFA] 8.5 GM HFA aerosol inhaler 2 puff Inhalation Q6HR PRN (Reason: SHORTNESS OF BREATH OR WHEEZE) Qty: 1 0RF levetiracetam 1,000 mg tablet 1,000 mg PO Q12H Patient Comments: TAKE 1 TABLET BY MOUTH TWICE A DAY docusate sodium 250 mg capsule 250 mg PO QDAY PRN (Reason: constipation) aspirin 81 mg tablet,chewable 81 mg PO BID Qty: 14 0RF hydrocodone-acetaminophen 5-300 mg tablet 1 tab PO Q8H MDD 15mg PRN (Reason: pain) Qty: 14 0RF Referrals: Ramirez Duarte MD [Primary Care Provider] - In 1 week Problem List Clinical Impression: Seizure, Acute UTI Patient/Caregiver Discharge Instructions Discharge Activity: activity as tolerated Education Materials: ED Seizure, Recurrent (Adult), ED Bladder Infection, Male (Adult) Additional Instructions: Follow up with primary provider in 1-2 days. Come back to ED if symptoms change or worsen. Follow-up with primary provider with urine culture. Print Language: Micronesian Stand Alone Forms: [employer] Award Info., Patient Portal Info Letter PA/FOUNDRY ENGINEER Supervising Physician LISA/FOUNDRY ENGINEER Supervising Physician: efra
[2024-11-09 12:48] LABS: Basophils # (Auto) 0.1 Thou/mm3 (0.0-0.2); Basophils % (Auto) 1 % (0-2.5); Eosinophils # (Auto) 0.2 Thou/mm3 (0.0-0.5); Eosinophils % (Auto) 3 % (0-10); Hematocrit 35.7 % (41.0-53.0); Hemoglobin 11.8 g/dL (13.5-16.0); Immature Granulocytes % (Auto) 1 % (0-0); Immature Granulocytes Auto 0.04 Thou/mm3 (0.00-0.00); Lymphocytes # (Auto) 0.9 Thou/mm3 (1.0-4.8); Lymphocytes % (Auto) 13 % (10-50); Mean Corpuscular HGB Conc 33.1 g/dl (31.0-37.0); Mean Corpuscular Hemoglobin 31.6 pg (25.0-35.0); Mean Corpuscular Volume 96 fL (80-100); Monocytes # (Auto) 0.7 Thou/mm3 (0.0-0.8); Monocytes % (Auto) 9 % (0-12); Neutrophils # (Auto) 5.3 Thou/mm3 (1.8-7.7); Neutrophils % (Auto) 74 % (37-80); Nucleated Red Blood Cell % 0 /100 WBC (0); Platelet Count 186 Thou/mm3 (140-440); RDW Standard Deviation 48.3 fL (35.1-43.9); Red Blood Count 3.74 Miln/mm3 (4.50-5.90); White Blood Count 7.2 Thou/mm3 (3.8-10.6)
[2024-11-09 13:03] LABS: B-Type Natriuretic Peptide < 20 pg/mL (0-100)
[2024-11-09 13:05] LABS: Alanine Aminotransferase 24 U/L (10-49); Albumin/Globulin Ratio 1.6 (1.2-2.2); Alkaline Phosphatase 164 U/L (46-116); Anion Gap 4 (7-16); Aspartate Amino Transferase 19 U/L (0-34); BUN/Creatinine Ratio 17 Ratio (12-20); Bilirubin,Total 0.2 mg/dL (0.3-1.2); Blood Urea Nitrogen 15 mg/dL (9-23); Calcium 9.4 mg/dL (8.3-10.6); Calcium (Corrected) 9.4 mg/dL (8.5-10.1); Carbon Dioxide 30.1 mMol/L (20.0-31.0); Chloride 102 mMol/L (98-107); Creatinine (Component) 0.9 mg/dL (0.6-1.3); Estimated Creatinine Clearance 92.7 mL/min (>60); Globulin 2.5 gm/dL (2.3-3.5); Glucose 86 mg/dL (74-106); Osmolality,Calculated 271 (275-295); Potassium 4.9 mMol/L (3.4-5.1); Sodium 136 mMol/L (136-145); Total Protein 6.5 gm/dL (5.7-8.2); Troponin I < 0.002 ng/mL (0.0-0.045); eGFR > 60 See Note
[2024-11-09 13:13] LABS: INR 1.1 (0.9-1.3); Prothrombin Time 11.6 Seconds (9.0-12.2)
[2024-11-09 15:28] LABS: Collection Type, Urine Voided; Squamous Epithelial Cell,Urine 0 /hpf (0-5)
[2024-11-09 15:44] LABS: Bacteria,Urine 1+; Bilirubin,Urine Negative (Negative); Blood,Urine Negative (Negative); Clarity,Urine Turbid (Clear/Hazy); Color,Urine Yellow (Lt Yel-Yel); Glucose, Urine Negative (Negative); Ketones,Urine Negative (Negative); Leukocyte Esterase,Urine Positive (Negative); Nitrite,Urine Positive (Negative); Protein,Urine Negative (Neg - Trace); RBC,Urine 5 /hpf (0-3); Specific Gravity,Urine 1.015 (1.001-1.035); Urobilinogen,Urine Negative mg/dL (0.0-1.0); WBC,Urine 453 /hpf (0-5)
[2024-11-09 15:49] LABS: Culture Indicated,Urine Yes
[2024-11-09] MEDS: cefTRIAXone 1,000 MG in SODIUM CHLORIDE 0.9% (Popper) 50 ML 100 MG IV (16:16)
--- NOTE | 2024-11-09 16:56 | PC.CC ---
Araceli STEPHENS was consulted regarding transportation for the patient back to [facility]. ASW made contact with [place] [phone].
--- NOTE | 2024-11-09 16:57 | PC.NURSE ---
SPOKE AND CALLED TO JUAN C ROTH, PER PT'S REQUEST, AND MADE AWARE PT WILL BE DISCHARGED BACK TO [facility].
--- NOTE | 2024-11-09 19:05 | PC.NURSE ---
SPOKE TO [facility] FOR SBAR REPORT AND MADE AWARE PT TO BE TRANSPORTED BACK TO [facility]ILITY [facility].
[2024-11-09] MEDS: PRIMIDONE 50 MG TABLET 250 MG PO (21:24)
[2024-11-09] MEDS: carBAMazepine 100 MG CHEW 600 MG PO (21:24)
[2024-11-13 06:53] LABS: Levetiracetam (Keppra)* 30.3 mcg/mL (6.0-46.0)
== END 2024-11-09 21:28 | disposition home or self-care (01) ==
PROVIDERS: Nurse Practitioner Family; Emergency Provider Emergency Medicine; PCP Hospitalist
DX: R56.9 Unspecified convulsions (principal); N39.0 Urinary tract infection, site not specified
CPT/HCPCS: 36415; 70450; 71045; 80053; 80177; 81001; 83880; 84484; 85025; 85610; 87077; 87086; 87186; 93005; 96365; 99284; J0696; J7050; A9270

== ENCOUNTER 2025-06-09 14:38 | Emergency (ER) | payer MEDICARE, MEDICAID, SELFPAY ==
[2025-06-09] VITALS (7 sets, daily range): BP systolic 130–195; BP diastolic 89–113; PULSE 64–88; RESP 14–20; TEMP 36.4–37; O2SAT 96–99; BMI 35.5
--- NOTE | 2025-06-09 14:40 | EKG_ITS ---
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
--- NOTE | 2025-06-09 15:08 | PD.EDSEIZ ---
ED Seizures RME/HPI General Chief Complaint: Seizure Stated Complaint: POSSIBLE SEIZURES Time Seen by Provider: 06/09/25 14:39 Arrival date/time: 06/09/25 14:38 RME / HPI RME / HPI Narrative: 70 year old male with history of seizures and hypertension presents to the ED BIBA for evaluation of lethargy, weakness, and possible seizure. Per prehospital report, blood glucose was 127 and blood pressure was 151/100. According to the caregiver, she arrived to the patient's home around 10 AM today. The patient had requested to use the restroom, but after standing from his wheelchair, he appeared unsteady. After arriving to the restroom, she noticed urine on the floor and that the patient had soiled himself, which was unusual for him. While attempting to assist him into the shower, the patient was unable to lift his legs and required help. During the shower, he had a blank stare for approximately five minutes describing the patient to be vacant , with occasional eye rolling. Symptoms persisted after the shower, prompting the caregiver to call 911. The caregiver notes that the symptoms today are different from his usual seizures. Patient denies recent illness, fevers, chills, cough, chest pain, shortness of breath, abdominal pain, nausea, vomiting, diarrhea, or urinary symptoms. Caregiver states patient is good about taking his medications and the morning pill box was empty. Related Data Home Medications ?Medication ?Instructions ?Recorded ?Confirmed Losartan Potassium * (COZAAR *) 25 mg PO QDAY #0 tabs 06/26/17 10/10/24 Held on 10/10/24. Instructions: Doctor's Order cholecalciferol (vitamin D3) 50 2,000 unit PO QDAY #0 caps 06/26/17 10/10/24 mcg (2,000 unit) capsule (Vitamin D3) omeprazole 20 mg capsule,delayed 20 mg PO QDAY ##0 06/26/17 10/09/24 release primidone 250 mg tablet (Mysoline) 250 mg PO TID #0 tabs 06/26/17 10/09/24 carbamazepine 200 mg tablet 600 mg PO BID ##0 09/14/17 10/10/24 (Epitol) levetiracetam 1,000 mg tablet 1,000 mg PO Q12H 10/09/24 10/09/24 docusate sodium 250 mg capsule 250 mg PO QDAY PRN constipation 10/10/24 10/10/24 Previous Rx's ?Medication ?Instructions ?Recorded lisinopril 10 mg tablet 10 mg PO QDAY #30 tabs 06/26/17 Held on 10/10/24. Instructions: Doctor's Order albuterol sulfate 90 mcg/actuation 2 puff inhalation Q6HR PRN 09/14/17 aerosol inhaler (ProAir HFA) SHORTNESS OF BREATH OR WHEEZE #1 inh aspirin 81 mg chewable tablet 81 mg PO BID #14 tabs 10/11/24 hydrocodone 5 mg-acetaminophen 300 1 tab PO Q8H PRN pain #14 tabs 10/11/24 mg tablet bacitracin 500 unit/gram topical 1 applic topical TID #14 grams 06/12/25 ointment Allergies Allergy/AdvReac Type Severity Reaction Status Date / Time divalproex sodium Allergy Mild Seizure Verified 10/10/24 17:11 diazepam AdvReac Mild Seizure Verified 10/10/24 17:11 Review of Systems Review of Systems Systems Reviewed: All systems reviewed, normal except as documented Past Medical History Past Medical History NEUROLOGIC: Positive Seizures and Epilepsy CARDIAC: Positive Hypertension GASTROINTESTINAL: Positive Gastroesophageal Reflux Disease Social History SMOKING STATUS: Never smoker SUBSTANCE USE: does not use ED Exam Narrative Physical exam: GENERAL APPEARANCE: alert and oriented x 4, well-developed, well-nourished, no acute distress HEENT: Normocephalic, atraumatic; EOMI; mucous membranes pink, moist; oropharynx clear NECK: Supple LUNGS: CTABL; no wheezes, no rales, no rhonchi HEART: Regular rate, regular rhythm; normal S1, S2; no murmurs ABDOMEN: non distended; normal BS; soft, no tenderness, no guarding, no rebound; no masses, no organomegaly, no hernia BACK: no CVA tenderness EXTREMITIES: atraumatic; no edema NEUROLOGIC: awake; alert and oriented x4; cranial nerves II-XII grossly intact; no focal sensory or motor deficits PSYCHIATRIC: appropriate mood and affect SKIN: warm, dry, normal color; no rashes Course Course Course Narrative: 1800p: Patient signed out to Dr. Sexton pending head CT and final disposition. 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 Officer NOW Care 06/09/25 14:40 Completed EKG (ED ONLY) *Do not use* NOW Care 06/09/25 14:[address] head/brain wo con Stat Exams 06/09/25 15:18 Completed EKG (ED Only) Stat Exams 06/09/25 14:40 Draft B-Type Natriuretic Peptide Stat Lab 06/09/25 15:35 Completed CBC Stat Lab 06/09/25 15:35 Completed Comprehensive Metabolic Panel Stat Lab 06/09/25 15:35 Completed Lipase Stat Lab 06/09/25 15:35 Completed Magnesium Stat Lab 06/09/25 15:35 Completed Partial Thromboplastin Time Stat Lab 06/09/25 15:35 Completed Prothrombin Time with INR Stat Lab 06/09/25 15:35 Completed Troponin I Stat Lab 06/09/25 15:35 Completed UA, C/S IF [Urinalysis, C/S if Indicated] Stat Lab 06/09/25 15:08 Completed Urine Culture Stat Lab 06/09/25 15:08 Completed Trimethoprim/Sulfa 160/800 Ds [Bactrim Ds] Med 06/09/25 17:44 Discontinued 1 tab PO X1 ONE hydrALAZINE HCL [Apresoline] Med 06/09/25 17:43 Discontinued 25 mg PO X1 ONE Vital Signs Vital signs: Vital Signs Temperature 97.6 F 06/09/25 14:43 Pulse Rate 88 06/09/25 14:43 Respiratory Rate 18 06/09/25 14:43 Blood Pressure 130/91 H 06/09/25 14:43 Pulse Oximetry (%) 96 06/09/25 14:43 Oxygen Delivery Method Room Air 06/09/25 14:43 Pulse ox is 96% on room air which is adequate. Seizure MDM Narrative MDM Narrative:: Krystal Myers am scribing for and in the presence of Dr. Diehl. Patient data External records reviewed:: [facility] previous records and EMS form Clinical information provided by:: patient, EMS and mounter automatic Social determinants that could affect healthcare access:: none Patient has the following chronic illnesses:: Hypertension, seizures How is presenting disease/condition affected by chronic disease/condition?: exacerbated by Evaluation data The following diagnostics were reviewed and interpreted by me:: lab results and EKG tracing(s) (NSR, rate 81, no STEMI. ) Lab and/or radiology exams considered but not ordered:: None Interpretation Summary: See above Medications / Prescriptions Medications or Prescriptions considered but not ordered:: None Medication administrations:: Medication Administration History Discontinued Medications Hydralazine HCl (Hydralazine Hcl 25 Mg Tablet) 25 mg PO X1 ONE Stop: 06/09/25 17:44 Last Admin: 06/09/25 17:51 Dose: 25 mg Documented By: BY Trimethoprim/Sulfamethoxazole (Trimethoprim/Sulfa 160/800 Ds Tablet) 1 tab PO X1 ONE Stop: 06/09/25 17:45 Last Admin: 06/09/25 17:51 Dose: 1 tab Documented By: BY See above Consultations Consultation(s) initiated? (list below): No Diagnosis Seizure Differential Diagnosis: intractable seizure disorder, generalized seizure, epileptic seizure and status epilepticus Most likely diagnosis given after review of the tests above:: UTI Admission Indicated Admission indicated?: not indicated Explain why admission is indicated or not indicated:: Signed out pending final disposition. Admission Request Was there a request for admission?: No Disposition Plan Disposition Plan: other (specify) (Signed out to Dr. Sexton ) Discharge Plan Prescriptions/Referrals Prescriptions/Med Rec: No Action primidone [Mysoline] 250 MG tablet 250 mg PO TID Qty: 0 omeprazole 20 MG capsule,delayed release(DR/EC) 20 mg PO QDAY Qty: 0 cholecalciferol (vitamin D3) [Vitamin D3] 2,000 UNIT capsule 2,000 unit PO QDAY Qty: 0 Losartan Potassium * (COZAAR *) 25 MG tablet 25 mg PO QDAY Qty: 0 lisinopril 10 MG tablet 10 mg PO QDAY Qty: 30 0RF carbamazepine [Epitol] 200 MG tablet 600 mg PO BID Qty: 0 albuterol sulfate [ProAir HFA] 8.5 GM HFA aerosol inhaler 2 puff Inhalation Q6HR PRN (Reason: SHORTNESS OF BREATH OR WHEEZE) Qty: 1 0RF levetiracetam 1,000 mg tablet 1,000 mg PO Q12H Patient Comments: TAKE 1 TABLET BY MOUTH TWICE A DAY docusate sodium 250 mg capsule 250 mg PO QDAY PRN (Reason: constipation) aspirin 81 mg tablet,chewable 81 mg PO BID Qty: 14 0RF hydrocodone-acetaminophen 5-300 mg tablet 1 tab PO Q8H MDD 15mg PRN (Reason: pain) Qty: 14 0RF bacitracin 500 unit/gram ointment 1 applic topical TID Qty: 14 0RF Referrals: Margie Asencio MD [Primary Care Provider] - In 1 week Problem List Clinical Impression: Generalized weakness, Altered mental status Patient/Caregiver Discharge Instructions Discharge Activity: activity as tolerated Print Language: Luxembourgish
--- NOTE | 2025-06-09 15:18 | XR_ITS ---
Examination: CT brain head without contrast. 2-D sagittal coronal reconstructions Date and time of exam: June 09, 2025, 1810 hours, comparison November 09, 2024 INDICATIONS: Seizure today followed by altered mental status CTDI: vol (mGy): 54.1 DLP: (mGycm): 1121 Technique: Multiple CT axial sections of the brain have been obtained, 5 mm slice thickness. Contrast has not been administered. 2-D sagittal, coronal reconstructions have been obtained Low dose protocols were performed. One or more of the following dose reduction techniques were used; automated exposure control, adjustment of the mA and/or KV according to patient size, use of iterative reconstruction technique. Findings: No significant ventricular enlargement. Intra-axial or extra-axial hemorrhage density is not seen. No mass effect or midline shift Basal cisterns are not remarkable. Fourth ventricle is midline. Cranial vault intact. Impression: Negative for acute hemorrhage, mass effect or midline shift Advise clinical correlation and follow-up accordingly
[2025-06-09 15:20] LABS: Collection Type, Urine Clean Catch
[2025-06-09 15:44] LABS: Basophils # (Auto) 0.0 Thou/mm3 (0.0-0.2); Basophils % (Auto) 1 % (0-2.5); Eosinophils # (Auto) 0.2 Thou/mm3 (0.0-0.5); Eosinophils % (Auto) 3 % (0-10); Hematocrit 44.1 % (41.0-53.0); Hemoglobin 14.3 g/dL (13.5-16.0); Immature Granulocytes Auto 0.03 Thou/mm3 (0.00-0.00); Lymphocytes # (Auto) 1.0 Thou/mm3 (1.0-4.8); Lymphocytes % (Auto) 19 % (10-50); Mean Corpuscular HGB Conc 32.4 g/dl (31.0-37.0); Mean Corpuscular Hemoglobin 31.3 pg (25.0-35.0); Mean Corpuscular Volume 97 fL (80-100); Monocytes # (Auto) 0.4 Thou/mm3 (0.0-0.8); Monocytes % (Auto) 8 % (0-12); Neutrophils # (Auto) 3.6 Thou/mm3 (1.8-7.7); Neutrophils % (Auto) 69 % (37-80); Nucleated Red Blood Cell # 0.00 Thou/mm3 (0.00-0.00); Nucleated Red Blood Cell % 0 /100 WBC (0); Platelet Count 186 Thou/mm3 (140-440); RDW Standard Deviation 49.9 fL (35.1-43.9); Red Blood Count 4.57 Miln/mm3 (4.50-5.90); White Blood Count 5.2 Thou/mm3 (3.8-10.6)
[2025-06-09 16:00] LABS: B-Type Natriuretic Peptide 29 pg/mL (0-100)
[2025-06-09 16:07] LABS: Bacteria,Urine 4+; Bilirubin,Urine Negative (Negative); Blood,Urine 3+ (Negative); Color,Urine Yellow (Lt Yel-Yel); Glucose, Urine Negative (Negative); Ketones,Urine Negative (Negative); Leukocyte Esterase,Urine Positive (Negative); Nitrite,Urine Positive (Negative); PH,Urine 5.5 (5.0-7.0); Protein,Urine 1+ (Neg - Trace); RBC,Urine 355 /hpf (0-3); Specific Gravity,Urine 1.021 (1.001-1.035); Squamous Epithelial Cell,Urine 1 /hpf (0-5); Urobilinogen,Urine Negative mg/dL (0.0-1.0); WBC,Urine 853 /hpf (0-5)
[2025-06-09 16:10] LABS: Clarity,Urine Turbid (Clear/Hazy)
[2025-06-09 16:11] LABS: Culture Indicated,Urine Yes
[2025-06-09 16:15] LABS: INR 1.0 (0.9-1.3); Partial Thromboplastin Time 24.8 Seconds (22.0-36.0); Prothrombin Time 10.7 Seconds (9.0-12.2)
[2025-06-09 16:17] LABS: Alanine Aminotransferase 7 U/L (10-49); Albumin, Serum 4.2 gm/dL (3.4-4.8); Albumin/Globulin Ratio 1.4 (1.2-2.2); Alkaline Phosphatase 135 U/L (46-116); Anion Gap 9 (7-16); Aspartate Amino Transferase 13 U/L (0-34); BUN/Creatinine Ratio 11 Ratio (12-20); Bilirubin,Total 0.2 mg/dL (0.3-1.2); Blood Urea Nitrogen 13 mg/dL (9-23); Calcium 9.5 mg/dL (8.3-10.6); Calcium (Corrected) 9.5 mg/dL (8.5-10.1); Carbon Dioxide 31.4 mMol/L (20.0-31.0); Chloride 103 mMol/L (98-107); Creatinine (Component) 1.2 mg/dL (0.6-1.3); Estimated Creatinine Clearance 69.6 mL/min (>60); Globulin 3.0 gm/dL (2.3-3.5); Glucose 107 mg/dL (74-106); Lipase 31 U/L (12-53); Magnesium 2.1 mg/dL (1.6-2.6); Osmolality,Calculated 285 (275-295); Potassium 4.1 mMol/L (3.4-5.1); Sodium 143 mMol/L (136-145); Total Protein 7.2 gm/dL (5.7-8.2); Troponin I < 0.002 ng/mL (0.0-0.045); eGFR > 60 See Note
[2025-06-09] MEDS: TRIMETHOPRIM/SULFA 160/800 DS TABLET 1 TAB PO (17:51)
--- NOTE | 2025-06-09 18:06 | EDNOTE_ITS ---
Emergency Room Addendum <Nazia Asencio - Last Filed: 06/09/25 19:02> Addendum Narrative: I took over the care from Dr. Diehl at 6 PM on 06/09/2025, see his notes for complete H&P and ED course. I reviewed all diagnostic test results. My interpretation of the EKG is: Sinus rhythm (81 bpm) with nonspecific ST-T changes. My review of the CT head report is NAD. Blood tests are unremarkable. UA remarkable for positive nitrite, positive leukocyte esterase, 355 RBCs, 853 WBCs, and 4+ bacteria. At this point, diagnoses include: UTI Based on my best medical judgment, made decision no further evaluation or treatment indicated at this time. Patient understands and agrees to the discha rge instructions customized and printed, see below. Discharge instructions from Dr. Sexton: 1. After evaluation, you have severe UTI (see attached handout). 2. Take Bactrim to kill the germs causing the infection. 3. For good hydration, increase oral fluid and maintain clear urine. If dark or yellow, increase oral fluid. 4. See a private doctor on 06/12/2025 for recheck. Ask to check the final urine culture results from today to make sure Bactrim doesn't need to be changed due to resistance. 5. Seek immediate medical care with worsening, fever, or with any concerns. Juan Carlos Sexton MD <Juan Carlos Sexton MD - Last Filed: 06/09/25 22:28> Addendum Narrative: I took over the care from Dr. Diehl at 6 PM on 06/09/2025, see his notes for complete H&P and ED course. I reviewed all diagnostic test results. My interpretation of the EKG is: Sinus rhythm (81 bpm) with nonspecific ST-T changes. My review of the CT head report is NAD. Blood tests are unremarkable. UA remarkable for positive nitrite, positive leukocyte esterase, 355 RBCs, 853 WBCs, and 4+ bacteria. At this point, diagnoses include: UTI Treatment by Dr. DIEHL included oral Bactrim. Recommended outpatient management. Based on my best medical judgment, made decision no further evaluation or treatment indicated at this time. 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 Discharge instructions from Dr. Sexton: 1. After evaluation, you have severe UTI (see attached handout). 2. Take Bactrim to kill the germs causing the infection. 3. For good hydration, increase oral fluid and maintain clear urine. If dark or yellow, increase oral fluid. 4. See a private doctor on 06/12/2025 for recheck. Ask to check the final urine culture results from today to make sure Bactrim doesn't need to be changed due to resistance. 5. Seek immediate medical care with worsening, fever, or with any concerns. Juan Carlos Sexton MD
== END 2025-06-09 19:07 | disposition home or self-care (01) ==
PROVIDERS: Emergency Medicine; Emergency Provider Emergency Medicine; PCP Family Medicine
DX: N39.0 Urinary tract infection, site not specified (principal); R41.82 Altered mental status, unspecified; R53.1 Weakness; R94.31 Abnormal electrocardiogram [ECG] [EKG]; I10 Essential (primary) hypertension; G40.909 Epilepsy, unspecified, not intractable, without status epilepticus
CPT/HCPCS: 36415; 70450; 80053; 81001; 83690; 83735; 83880; 84484; 85025; 85610; 85730; 87077; 87086; 87186; 93005; 99284; A9270

== ENCOUNTER 2025-06-11 22:41 | Emergency (ER) | payer MEDICARE, MEDICAID, SELFPAY ==
[2025-06-11 22:48] VITALS: PULSE 81; RESP 14; BMI 36.6
--- NOTE | 2025-06-11 22:59 | PD.EDFALL ---
ED Fall Injury RME/HPI General Chief Complaint: Fall Stated Complaint: FALL Time Seen by Provider: 06/11/25 22:59 Arrival date/time: 06/11/25 22:41 RME / HPI RME / HPI Narrative: Dr. Parsons?s Main ED Evaluation: 70yo male BIBA from home presenting for an unwitnessed fall at home. Patient was unable to arise from commode, and he fell forward, striking his head. No LOC. Patient fully recalls the event. Denies anticoagulation therapy. No neck pain or upper/lower radiculopathy. PMH includes HTN, epilepsy. PSH noncontributory. Nondrinker, no illicit drug use. Allergies to Valium and Depakote. Related Data Home Medications ?Medication ?Instructions ?Recorded ?Confirmed Losartan Potassium * (COZAAR *) 25 mg PO QDAY #0 tabs 06/26/17 10/10/24 Held on 10/10/24. Instructions: Doctor's Order cholecalciferol (vitamin D3) 50 2,000 unit PO QDAY #0 caps 06/26/17 10/10/24 mcg (2,000 unit) capsule (Vitamin D3) omeprazole 20 mg capsule,delayed 20 mg PO QDAY ##0 06/26/17 10/09/24 release primidone 250 mg tablet (Mysoline) 250 mg PO TID #0 tabs 06/26/17 10/09/24 carbamazepine 200 mg tablet 600 mg PO BID ##0 09/14/17 10/10/24 (Epitol) levetiracetam 1,000 mg tablet 1,000 mg PO Q12H 10/09/24 10/09/24 docusate sodium 250 mg capsule 250 mg PO QDAY PRN constipation 10/10/24 10/10/24 Previous Rx's ?Medication ?Instructions ?Recorded lisinopril 10 mg tablet 10 mg PO QDAY #30 tabs 06/26/17 Held on 10/10/24. Instructions: Doctor's Order albuterol sulfate 90 mcg/actuation 2 puff inhalation Q6HR PRN 09/14/17 aerosol inhaler (ProAir HFA) SHORTNESS OF BREATH OR WHEEZE #1 inh aspirin 81 mg chewable tablet 81 mg PO BID #14 tabs 10/11/24 hydrocodone 5 mg-acetaminophen 300 1 tab PO Q8H PRN pain #14 tabs 10/11/24 mg tablet sulfamethoxazole 800 1 tab PO BID 7 days #14 tabs 06/09/25 mg-trimethoprim 160 mg tablet (Bactrim DS) sulfamethoxazole 800 1 tab PO BID 7 days #14 tabs 06/10/25 mg-trimethoprim 160 mg tablet (Bactrim DS) bacitracin 500 unit/gram topical 1 applic topical TID #14 grams 06/12/25 ointment Allergies Allergy/AdvReac Type Severity Reaction Status Date / Time divalproex sodium Allergy Mild Seizure Verified 10/10/24 17:11 diazepam AdvReac Mild Seizure Verified 10/10/24 17:11 Review of Systems Review of Systems Systems Reviewed: All systems reviewed, normal except as documented Past Medical History Past Medical History NEUROLOGIC: Positive Seizures and Epilepsy CARDIAC: Positive Hypertension; Negative Congestive Heart Failure RESPIRATORY: Negative Chronic Obstructive Pulmonary Disease (COPD) GASTROINTESTINAL: Positive Gastroesophageal Reflux Disease GENITOURINARY: Negative Renal Disease ENDOCRINE: Negative Diabetes Mellitus Type 1 or Diabetes Mellitus Type 2 OTHER HISTORY: Negative Blood Transfusions, Blood Transfusion Reaction, Anesthesia Reactions or Cancer Social History SMOKING STATUS: Never smoker SUBSTANCE USE: does not use ED Exam Narrative Physical exam: GENERAL APPEARANCE: alert and oriented x 4, interactive, well-developed, well-nourished, no acute distress VITALS: All vitals were reviewed and the pulse ox is % on room air, which is normal according to my interpretation. HEENT: Normocephalic, atraumatic; pupils equal, round, reactive to light; EOMI; mucous membranes pink, moist; oropharynx clear NECK: Supple LUNGS: CTABL; no wheezes, no rales, no rhonchi HEART: Regular rate, regular rhythm; normal S1, S2; no murmurs ABDOMEN: non distended; normal BS; soft, no tenderness, no guarding, no rebound; no masses, no organomegaly, no hernia BACK: no CVA tenderness EXTREMITIES: atraumatic; no edema NEUROLOGIC: awake; alert and oriented x4; cranial nerves II-XII grossly intact; no focal sensory or motor deficits PSYCHIATRIC: appropriate mood and affect SKIN: warm, dry, normal color; no rashes; abrasion to the right forearm, lateral elbow Course Quality Measures none Orders Category Date Time Status Bedside Blood Glucose NOW Care 06/11/25 23:24 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 Care 06/11/25 23:26 Completed Continuous Pulse Oximetry NOW Care 06/11/25 23:24 Completed EKG (ED ONLY) *Do not use* NOW Care 06/11/25 23:26 Completed NPO NOW Care 06/11/25 23:[address] head/brain wo con Stat Exams 06/11/25 23:28 Completed EKG (ED Only) Stat Exams 06/11/25 23:24 Draft Alcohol, Blood Medical Stat Lab 06/11/25 23:52 Completed CBC Stat Lab 06/11/25 23:52 Completed Drug Screen,Urine Stat Lab 06/12/25 01:12 Completed Magnesium Stat Lab 06/11/25 23:52 Completed Thyroid Stimulating Hormone Stat Lab 06/11/25 23:52 Completed Troponin I Stat Lab 06/11/25 23:52 Completed Urinalysis, C/S if Indicated Stat Lab 06/12/25 01:12 Completed Sodium Chloride 0.9% 500 ml [Ns] 500 ml Med 06/11/25 23:24 Discontinued IV 500 mls/hr TET,DIP/PERT AC (Adult)-Tdap [Boostrix Adult (Tdap) Med 06/12/25 00:43 Discontinued Vacc] 0.5 ml IMI .ONCE ONE TET,DIP/PERT AC (Adult)-Tdap [Boostrix Adult (Tdap) Med 06/12/25 01:00 Discontinued Vacc] 0.5 ml IMI .ONCE ONE Tetanus, Diphtheria Toxoids/Pf [Tenivac-Adult] Med 06/11/25 23:24 Discontinued 0.5 ml IMI .ONCE ONE Oxygen Delivery NOW RT 06/11/25 23:26 Completed Vital Signs Vital signs: Vital Signs Temperature 98.7 F 06/11/25 23:12 Respiratory Rate 18 06/11/25 23:12 Blood Pressure 162/97 H 06/11/25 23:12 Pulse Oximetry (%) 98 06/11/25 23:12 Oxygen Delivery Method Room Air 06/11/25 23:12 Fall MDM Narrative MDM Narrative:: Scribe Attestation: 06/11/25 Nazia Morales, am scribing for and in the presence of Dr. Parsons. 70yo male BIBA from home presenting for an unwitnessed fall at home. Patient was unable to arise from commode, and he fell forward, striking his head. No LOC. Please see PE findings. Lab markers demonstrated normal WBC count, HnH 13.2/39.4, Plt 185. Troponin undetected, UA equivocal for evidence of UTI, CMP pending. Patient incurred superficial abrasion to the right forearm lateral elbow. Tetanus updated. Patient received IV hydration and underwent CT brain, which was unremarkable. Patient remained neurologically intact throughout ED course. 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 After period of observation, patient is considered stable for home. Dx:Disequilibrium, head contusion, right elbow abrasion Patient data External records reviewed:: [facility] previous records (Per chart review, patient was seen here on 06/09/25 for UTI.) and EMS form Clinical information provided by:: patient Social determinants that could affect healthcare access:: none Patient has the following chronic illnesses:: seizures, HTN How is presenting disease/condition affected by chronic disease/condition?: uneffected by Evaluation data The following diagnostics were reviewed and interpreted by me:: lab results, radiology exam(s) and EKG tracing(s) Lab and/or radiology exams considered but not ordered:: none Interpretation Summary: EKG done at 2348, sinus rhythm, rate of 78, no acute pathological ST segment changes, no ectopy, normal intervals, normal axis, according to my interpretation. --------- Telerad Preliminary Report Draft Patient: LULU ROMO [facility]. Record#: [id number] Birthdate: 1955 Age/Sex: 70 / M Location: [facility] Attending Dr: Ordering Physician: Date of Service: Procedure(s): Accession Number(s): cc: ~ CT scan of the head without intravenous contrast (axial sections with sagittal and coronal reformats) June 12, 2025 0033 hours Clinical History: Trauma Reference is made to the prior report dated December 22, 2023. Findings: There is no evidence of intracranial hemorrhage, mass effect or midline shift. 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 There are mild periventricular white matter hypodensities, likely representing chronic small vessel ischemia. The CSF spaces are prominent consistent with moderate volume loss. The calvarium is intact. The mastoid air cells and the visualized paranasal sinuses are clear. Impression: No evidence of intracranial hemorrhage, midline shift or calvarial fracture. Periventricular chronic small vessel ischemia, old infarct and volume loss. Report Electronically Signed By: David Pena 06/12/2025 1:24:21 AM [EST] Medications / Prescriptions Medications or Prescriptions considered but not ordered:: none Medication administrations:: Medication Administration History Discontinued Medications Diphtheria/Tetanus/Acell Pertussis (Diphth,Pertuss(Acell),Tet Vac 0.5 Ml Syr- Adult) 0.5 ml IMi .ONCE ONE Stop: 06/12/25 00:44 Last Admin: 06/12/25 00:52 Dose: Not Given Documented By: DT Non-Admin Reason: Patient Refused Diphtheria/Tetanus/Acell Pertussis (Diphth,Pertuss(Acell),Tet Vac 0.5 Ml Syr- Adult) 0.5 ml IMi .ONCE ONE Stop: 06/12/25 01:01 Last Admin: 06/12/25 01:06 Dose: 0.5 ml Documented By: CARMELO Sodium Chloride (Ns) 500 mls @ 500 mls/hr IV .Q1H ONE Stop: 06/12/25 00:23 Last Infusion: 06/12/25 02:00 Dose: Infused Documented By: Admin: 06/12/25 00:54 Dose: 500 mls/hr Documented By: DT Tetanus/Diphtheria Toxoids (Tetanus,Diphtheria Toxoids/Pf (Adult) 0.5 Ml Syringe) 0.5 ml IMi .ONCE ONE Stop: 06/11/25 23:25 Last Admin: 06/12/25 01:04 Dose: Not Given Documented By: DT Non-Admin Reason: Not Given see above Consultations Consultation(s) initiated? (list below): No Diagnosis Fall Differential Diagnosis: syncope, concussion with loss of consciousness and other (contusion, fracture, ICH) Most likely diagnosis given after review of the tests above:: see clinical impression below Admission Indicated Admission indicated?: not indicated Admission Request Was there a request for admission?: No Disposition Plan Disposition Plan: Discharge Discharge Attestation Discharge Attestation: The patient and all family members were given an opportunity to ask questions and understood the discharge instructions. Discharge instructions specifically effects, indications for sooner follow up or return to the emergency department, and the expected course of current diagnosis. Patient condition: Stable Discharge Plan Plan Patient Disposition: HOME (Self Care) Discharge Disposition comment: STABLE Prescriptions/Referrals Prescriptions/Med Rec: New bacitracin 500 unit/gram ointment 1 applic topical TID Qty: 14 0RF No Action primidone [Mysoline] 250 MG tablet 250 mg PO TID Qty: 0 omeprazole 20 MG capsule,delayed release(DR/EC) 20 mg PO QDAY Qty: 0 cholecalciferol (vitamin D3) [Vitamin D3] 2,000 UNIT capsule 2,000 unit PO QDAY Qty: 0 Losartan Potassium * (COZAAR *) 25 MG tablet 25 mg PO QDAY Qty: 0 lisinopril 10 MG tablet 10 mg PO QDAY Qty: 30 0RF carbamazepine [Epitol] 200 MG tablet 600 mg PO BID Qty: 0 albuterol sulfate [ProAir HFA] 8.5 GM HFA aerosol inhaler 2 puff Inhalation Q6HR PRN (Reason: SHORTNESS OF BREATH OR WHEEZE) Qty: 1 0RF levetiracetam 1,000 mg tablet 1,000 mg PO Q12H Patient Comments: TAKE 1 TABLET BY MOUTH TWICE A DAY docusate sodium 250 mg capsule 250 mg PO QDAY PRN (Reason: constipation) aspirin 81 mg tablet,chewable 81 mg PO BID Qty: 14 0RF hydrocodone-acetaminophen 5-300 mg tablet 1 tab PO Q8H MDD 15mg PRN (Reason: pain) Qty: 14 0RF sulfamethoxazole-trimethoprim [Bactrim DS] 800-160 mg tablet 1 tab PO BID 7 Days Qty: 14 0RF sulfamethoxazole-trimethoprim [Bactrim DS] 800-160 mg tablet 1 tab PO BID 7 Days Qty: 14 0RF Referrals: Juan Asencio MD [Primary Care Provider, Family Practice] - In 1 week Problem List Clinical Impression: Contusion of head, Disequilibrium, Abrasion forearm Patient/Caregiver Discharge Instructions Discharge Activity: activity as tolerated Education Materials: ED Abrasions, ED Head Injury (Adult) Additional Instructions: Avoid abrupt movements. Increase fluid hydration. Medication as directed. Follow-up with PMD in 3 to 5 days Print Language: Thai Stand Alone Forms: [employer] Award Info., Patient Portal Info Letter
[2025-06-11 23:12] VITALS: BP 162/97; RESP 18; TEMP 37.1; O2SAT 98
--- NOTE | 2025-06-11 23:24 | EKG_ITS ---
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
--- NOTE | 2025-06-11 23:28 | XR_ITS ---
Examination: CT brain head without contrast. 2-D sagittal coronal reconstructions Date and time of exam: June 12, 2025, 0030 hours, comparison June 09, 2025 INDICATIONS: Ground-level fall today CTDI: vol (mGy): 58.90 DLP: (mGycm): 1242 Technique: Multiple CT axial sections of the brain have been obtained, 5 mm slice thickness. Contrast has not been administered. 2-D sagittal, coronal reconstructions have been obtained Low dose protocols were performed. One or more of the following dose reduction techniques were used; automated exposure control, adjustment of the mA and/or KV according to patient size, use of iterative reconstruction technique. Findings: No significant ventricular enlargement. Old infarct left basal ganglia Intra-axial or extra-axial hemorrhage density is not seen. No mass effect or midline shift Basal cisterns are not remarkable. Fourth ventricle is midline. Cranial vault intact. Impression: Negative for acute hemorrhage, mass effect or midline shift
[2025-06-11 23:59] LABS: Basophils # (Auto) 0.1 Thou/mm3 (0.0-0.2); Basophils % (Auto) 1 % (0-2.5); Eosinophils # (Auto) 0.1 Thou/mm3 (0.0-0.5); Eosinophils % (Auto) 1 % (0-10); Hematocrit 39.4 % (41.0-53.0); Hemoglobin 13.2 g/dL (13.5-16.0); Immature Granulocytes Auto 0.03 Thou/mm3 (0.00-0.00); Lymphocytes # (Auto) 1.1 Thou/mm3 (1.0-4.8); Lymphocytes % (Auto) 13 % (10-50); Mean Corpuscular HGB Conc 33.5 g/dl (31.0-37.0); Mean Corpuscular Hemoglobin 31.4 pg (25.0-35.0); Mean Corpuscular Volume 94 fL (80-100); Monocytes # (Auto) 0.5 Thou/mm3 (0.0-0.8); Monocytes % (Auto) 7 % (0-12); Neutrophils # (Auto) 6.2 Thou/mm3 (1.8-7.7); Neutrophils % (Auto) 78 % (37-80); Nucleated Red Blood Cell # 0.00 Thou/mm3 (0.00-0.00); Nucleated Red Blood Cell % 0 /100 WBC (0); Platelet Count 185 Thou/mm3 (140-440); RDW Standard Deviation 47.1 fL (35.1-43.9); Red Blood Count 4.20 Miln/mm3 (4.50-5.90); White Blood Count 8.0 Thou/mm3 (3.8-10.6)
[2025-06-12 00:21] LABS: Alcohol, Blood Medical < 10.0 mg/dL (0-10.0); Magnesium 2.1 mg/dL (1.6-2.6); Thyroid Stimulating Hormone 2.40 uIU/mL (0.55-4.78); Troponin I < 0.002 ng/mL (0.0-0.045)
[2025-06-12 00:43] VITALS: BP 148/104; PULSE 78; RESP 14; O2SAT 99
[2025-06-12] MEDS: SODIUM CHLORIDE 0.9% 500 ML 500 ML IV (00:54)
[2025-06-12] MEDS: DIPHTH,PERTUSS(ACELL),TET VAC 0.5 ML SYR- ADULT IMi (01:06)
[2025-06-12 01:20] LABS: Collection Type, Urine Clean Catch
[2025-06-12 01:23] LABS: Bilirubin,Urine Negative (Negative); Blood,Urine Negative (Negative); Clarity,Urine Clear (Clear/Hazy); Color,Urine Lt-Yellow (Lt Yel-Yel); Glucose, Urine Negative (Negative); Ketones,Urine Negative (Negative); Leukocyte Esterase,Urine Positive (Negative); Nitrite,Urine Negative (Negative); PH,Urine 6.5 (5.0-7.0); Protein,Urine Negative (Neg - Trace); RBC,Urine 3 /hpf (0-3); Specific Gravity,Urine 1.018 (1.001-1.035); Squamous Epithelial Cell,Urine < 1 /hpf (0-5); Urobilinogen,Urine Negative mg/dL (0.0-1.0); WBC,Urine 21 /hpf (0-5)
--- NOTE | 2025-06-12 01:25 | PRELIM_ITS ---
CT scan of the head without intravenous contrast (axial sections with sagittal and coronal reformats) June 12, 2025 0033 hours Clinical History: Trauma Reference is made to the prior report dated December 22, 2023. Findings: There is no evidence of intracranial hemorrhage, mass effect or midline shift. 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 There are mild periventricular white matter hypodensities, likely representing chronic small vessel ischemia. The CSF spaces are prominent consistent with moderate volume loss. The calvarium is intact. The mastoid air cells and the visualized paranasal sinuses are clear. Impression: No evidence of intracranial hemorrhage, midline shift or calvarial fracture. Periventricular chronic small vessel ischemia, old infarct and volume loss. Report Electronically Signed By: David Pena 06/12/2025 1:24:21 AM [EST]
[2025-06-12 01:28] LABS: Culture Indicated,Urine Yes
[2025-06-12 01:30] LABS: Amphetamine/Methamp Scrn,U Negative (Negative); Barbiturate Screen,Urine Positive (Negative); Benzodiazepines Screen,Urine Negative (Negative); Benzoylecgonine Screen, Ur Negative (Negative); Fentanyl Screen,Urine Negative (Negative); Opiate Screen,Urine Negative (Negative); THC Screen,Urine Negative (Negative)
[2025-06-12 04:34] VITALS: BP 104/53; BP 125/85; BP 127/80; PULSE 65; PULSE 84; PULSE 87
[2025-06-12 04:48] VITALS: PULSE 80; RESP 18; RESP 98
== END 2025-06-12 05:26 | disposition home or self-care (01) ==
PROVIDERS: Emergency Provider Emergency Medicine; PCP Family Medicine
DX: S00.93XA Contusion of unspecified part of head, initial encounter (principal); S50.311A Abrasion of right elbow, initial encounter; E87.8 Other disorders of electrolyte and fluid balance, not elsewhere classified; W19.XXXA Unspecified fall, initial encounter; Y92.009 Unspecified place in unspecified non-institutional (private) residence as the place of occurrence of the external cause; Z23 Encounter for immunization
CPT/HCPCS: 36415; 70450; 80053; 80307; 80320; 81001; 83735; 84443; 84484; 85025; 87086; 90471; 90715; 93005; 96360; 99284; J7999; G0480

== ENCOUNTER 2025-07-02 11:17 | Emergency (ER) | payer MEDICARE, MEDICAID, SELFPAY ==
[2025-07-02 11:53] VITALS: BP 106/73; PULSE 72; RESP 18; TEMP 36.9; O2SAT 98
--- NOTE | 2025-07-02 12:07 | XR_ITS ---
EXAMINATION: AP chest single view TECHNIQUE: 1. AP upright portable chest single view Date and time: July 02, 2025, 1134 hours INDICATIONS: Chest pain and confusion today. FINDINGS: Poor inspiration Normal heart size No lobar pneumonia or pulmonary edema IMPRESSION: Poor inspiratory effort chest x-ray
--- NOTE | 2025-07-02 12:07 | EKG_ITS ---
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
--- NOTE | 2025-07-02 12:07 | XR_ITS ---
Examination: CT brain head without contrast. 2-D sagittal coronal reconstructions Date and time of exam: July 02, 2025, 1225 hours, comparison June 12, 2025 INDICATIONS: Onset confusion today, history ground-level fall June 12, 2025 CTDI: vol (mGy): 57 DLP: (mGycm): 1157 Technique: Multiple CT axial sections of the brain have been obtained, 5 mm slice thickness. Contrast has not been administered. 2-D sagittal, coronal reconstructions have been obtained Low dose protocols were performed. One or more of the following dose reduction techniques were used; automated exposure control, adjustment of the mA and/or KV according to patient size, use of iterative reconstruction technique. Findings: No significant ventricular enlargement. Intra-axial or extra-axial hemorrhage density is not seen. No mass effect or midline shift Basal cisterns are not remarkable. Fourth ventricle is midline. Cranial vault intact. Impression: Negative for acute hemorrhage, mass effect or midline shift Advise clinical correlation and follow-up accordingly
--- NOTE | 2025-07-02 12:09 | PD.EDMALE ---
ED Male Genitalurinary RME/HPI General Chief complaint: Urogenital-Male Stated complaint: UTI Time Seen by Provider: 07/02/25 11:39 Arrival date/time: 07/02/25 11:17 70-year-old male patient with significant history of hypertension, seizure disorder, was brought in by caregiver for possible urinary tract infection. According to the caregiver patient lives alone however she is watching him 7 times a day in the morning and in the afternoon. For the last 3 days patient had episode of on and off confusion. And noticed cloudy urine. Currently patient is alert oriented x 3, denies any fever, denies any dysuria denies any abdominal pain no vomiting noted. Recently diagnosed with UTI 3 weeks ago, completed 1 week course of IV p.o. antibiotic. Patient sustained a fall 3 days ago. Patient denies any headache or neck pain. Denies any chest pain. Related Data Home Medications ?Medication ?Instructions ?Recorded ?Confirmed Losartan Potassium * (COZAAR *) 25 mg PO QDAY #0 tabs 06/26/17 10/10/24 Held on 10/10/24. Instructions: Doctor's Order cholecalciferol (vitamin D3) 50 2,000 unit PO QDAY #0 caps 06/26/17 10/10/24 mcg (2,000 unit) capsule (Vitamin D3) omeprazole 20 mg capsule,delayed 20 mg PO QDAY ##0 06/26/17 10/09/24 release primidone 250 mg tablet (Mysoline) 250 mg PO TID #0 tabs 06/26/17 10/09/24 carbamazepine 200 mg tablet 600 mg PO BID ##0 09/14/17 10/10/24 (Epitol) levetiracetam 1,000 mg tablet 1,000 mg PO Q12H 10/09/24 10/09/24 docusate sodium 250 mg capsule 250 mg PO QDAY PRN constipation 10/10/24 10/10/24 Previous Rx's ?Medication ?Instructions ?Recorded lisinopril 10 mg tablet 10 mg PO QDAY #30 tabs 06/26/17 Held on 10/10/24. Instructions: Doctor's Order albuterol sulfate 90 mcg/actuation 2 puff inhalation Q6HR PRN 09/14/17 aerosol inhaler (ProAir HFA) SHORTNESS OF BREATH OR WHEEZE #1 inh aspirin 81 mg chewable tablet 81 mg PO BID #14 tabs 10/11/24 hydrocodone 5 mg-acetaminophen 300 1 tab PO Q8H PRN pain #14 tabs 10/11/24 mg tablet bacitracin 500 unit/gram topical 1 applic topical TID #14 grams 06/12/25 ointment cefuroxime axetil 500 mg tablet 500 mg PO BID #14 tabs 07/02/25 Allergies Allergy/AdvReac Type Severity Reaction Status Date / Time divalproex sodium Allergy Mild Seizure Verified 07/02/25 11:20 diazepam AdvReac Mild Seizure Verified 07/02/25 11:20 Review of Systems Review of Systems Narrative Review of Systems: Review of system reviewed and within normal limits except mentioned in HPI ED Exam Narrative Physical exam: VITAL SIGNS: Reviewed. GENERAL APPEARANCE: Alert and interactive, follows commands, no acute distress, HEAD AND FACE: Non-traumatic. ENT: PERRL, pink conjunctivitis, eyelid no trauma, Mucous membrane moist. NECK: Supple, nontender, no nuchal rigidity. CHEST: No tenderness, no crepitus, no paradoxical movement, no retractions. LUNGS: Clear, well ventilated, symmetric, no rales, no wheezing, no ronchi, no stridor, good breath sounds bilaterally. HEART: Regular rate, regular rhythm, no murmur, no gallops. ABDOMEN: Soft, positive bowel sounds, nondistended, no guarding, nontender, no rebound, no masses, RECTAL: Deferred. GENITAL: Deferred. NEUROLOGICAL: Gross motor function intact sensory function intact, Appropriate for age. MUSCULOSKELETAL: low back nontender, full range of motion. EXTREMITIES: Nontender, full range of motion. SKIN: Color pink, dry, no rash, no lacerations, no abrasions, no contusions. LYMPHATICS: Deferred. Course Quality Measures none Orders Category Date Time Status EKG (ED ONLY) *Do not use* NOW Care 07/02/25 12:08 Completed Straight [In and Out Catheter] X1 Care 07/02/25 13:[address] head/brain wo con Stat Exams 07/02/25 12:07 Completed EKG (ED Only) Stat Exams 07/02/25 12:07 Draft XR chest 1V Stat Exams 07/02/25 12:07 Completed CBC [CBC] Stat Lab 07/02/25 12:50 Completed CMP [Comprehensive Metabolic Panel] Stat Lab 07/02/25 12:50 Completed Lactate (Lactic Acid) Stat Lab 07/02/25 12:50 Completed Procalcitonin Stat Lab 07/02/25 12:50 Completed Troponin I Stat Lab 07/02/25 12:50 Completed UA, C/S IF [Urinalysis, C/S if Indicated] Stat Lab 07/02/25 14:20 Completed Urine Culture Stat Lab 07/02/25 14:20 Received Lidocaine 1% Pf 5 ml [Xylocaine 1% Pf 5 ml] Med 07/02/25 15:30 Discontinued 2 ml INFL X1 ONE Potassium Chloride [K-Dur] Med 07/02/25 14:01 Discontinued 40 meq PO X1 ONE cefTRIAXone [Rocephin] 1,000 mg Med 07/02/25 15:30 Discontinued Lidocaine 1% 20 ml [Xylocaine 1% 20 ML] 2.1 ml IM X1 Vital Signs Vital signs: Vital Signs Temperature 98.4 F 07/02/25 11:53 Pulse Rate 72 07/02/25 11:53 Respiratory Rate 18 07/02/25 11:53 Blood Pressure 106/73 07/02/25 11:53 Pulse Oximetry (%) 98 07/02/25 11:53 Oxygen Delivery Method Room Air 07/02/25 11:53 Urogenital - Male MDM Narrative MDM Narrative:: 70-year-old male patient with significant history of hypertension, seizure disorder, was brought in by caregiver for possible urinary tract infection. According to the caregiver patient lives alone however she is watching him 7 times a day in the morning and in the afternoon. For the last 3 days patient had episode of on and off confusion. And noticed cloudy urine. Currently patient is alert oriented x 3, denies any fever, denies any dysuria denies any abdominal pain no vomiting noted. Recently diagnosed with UTI 3 weeks ago, completed 1 week course of IV p.o. antibiotic. Patient sustained a fall 3 days ago. Patient denies any headache or neck pain. Denies any chest pain. Patient's workup is significant for UTI, no leukocytosis noted. Creatinine is normal. Except for potassium of 3.3. CT scan of the head came back unremarkable. I personally reviewed and interpreted the x-ray of this patient. There is no acute abnormalities found, no infiltrates no pneumothorax no hemothorax normal chest x-ray. Review of other structures was without significant abnormal findings also. I additionally reviewed the radiologist report and agree with the interpretation. No recurrence of confusion in the emergency room. Patient is alert oriented x 3. He had received ceftriaxone and IM for UTI Patient will be discharged home on cefuroxime. 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 Medications / Prescriptions Medications or Prescriptions considered but not ordered:: None Medication administrations:: Medication Administration History Discontinued Medications Ceftriaxone Sodium 1,000 mg/ (Lidocaine HCl 2.1 ml) 0 mg IM X1 ONE Stop: 07/02/25 15:31 Lidocaine HCl (Lidocaine Inj Pf 1% 5 Ml Vial) 2 ml INFL X1 ONE Stop: 07/02/25 15:31 Potassium Chloride (Potassium Chloride 20 Meq Tabcr) 40 meq PO X1 ONE Stop: 07/02/25 14:02 Last Admin: 07/02/25 14:35 Dose: 40 meq Documented By: Ceftriaxone IM, potassium replacement, Consultations Consultation(s) initiated? (list below): No Diagnosis Urogenital Male Differential Diagnosis: urinary tract infection and other (Delirium, confusion) Most likely diagnosis given after review of the tests above:: UTI Admission Indicated Admission indicated?: not indicated Explain why admission is indicated or not indicated:: Stable Admission Request Was there a request for admission?: No Disposition Plan Disposition Plan: Discharge Discharge Attestation Discharge Attestation: The patient and all family members were given an opportunity to ask questions and understood the discharge instructions. Discharge instructions specifically effects, indications for sooner follow up or return to the emergency department, and the expected course of current diagnosis. Patient condition: Stable Discharge Plan Plan Patient Disposition: HOME (Self Care) Discharge Disposition comment: stable Prescriptions/Referrals Prescriptions/Med Rec: New cefuroxime axetil 500 mg tablet 500 mg PO BID Qty: 14 0RF No Action primidone [Mysoline] 250 MG tablet 250 mg PO TID Qty: 0 omeprazole 20 MG capsule,delayed release(DR/EC) 20 mg PO QDAY Qty: 0 cholecalciferol (vitamin D3) [Vitamin D3] 2,000 UNIT capsule 2,000 unit PO QDAY Qty: 0 Losartan Potassium * (COZAAR *) 25 MG tablet 25 mg PO QDAY Qty: 0 lisinopril 10 MG tablet 10 mg PO QDAY Qty: 30 0RF carbamazepine [Epitol] 200 MG tablet 600 mg PO BID Qty: 0 albuterol sulfate [ProAir HFA] 8.5 GM HFA aerosol inhaler 2 puff Inhalation Q6HR PRN (Reason: SHORTNESS OF BREATH OR WHEEZE) Qty: 1 0RF levetiracetam 1,000 mg tablet 1,000 mg PO Q12H Patient Comments: TAKE 1 TABLET BY MOUTH TWICE A DAY docusate sodium 250 mg capsule 250 mg PO QDAY PRN (Reason: constipation) aspirin 81 mg tablet,chewable 81 mg PO BID Qty: 14 0RF hydrocodone-acetaminophen 5-300 mg tablet 1 tab PO Q8H MDD 15mg PRN (Reason: pain) Qty: 14 0RF bacitracin 500 unit/gram ointment 1 applic topical TID Qty: 14 0RF Referrals: Juan Asencio MD [Primary Care Provider, Family Practice] - In 1 week Problem List Clinical Impression: Urinary tract infection Patient/Caregiver Discharge Instructions Discharge Activity: activity as tolerated Education Materials: Understanding Urinary Tract ... Additional Instructions: Thank you for the opportunity for serving you today. You are stable for discharged . You are advised to: Follow-up with your PCP in 1 to 2 days Return to ED for worsening of symptoms Increase oral fluids Take medication as prescribed Print Language: Belarusian Stand Alone Forms: [employer] Award Info., Patient Portal Info Letter PA/NATHALY Supervising Physician PA/NATHALY Supervising Physician: MD Carlie
[2025-07-02 13:06] LABS: Lactate (Lactic Acid) 1.6 mMol/L (0.4-2.0)
[2025-07-02 13:11] LABS: Basophils # (Auto) 0.0 Thou/mm3 (0.0-0.2); Basophils % (Auto) 1 % (0-2.5); Eosinophils # (Auto) 0.1 Thou/mm3 (0.0-0.5); Eosinophils % (Auto) 2 % (0-10); Hematocrit 40.7 % (41.0-53.0); Hemoglobin 13.7 g/dL (13.5-16.0); Immature Granulocytes Auto 0.03 Thou/mm3 (0.00-0.00); Lymphocytes # (Auto) 0.9 Thou/mm3 (1.0-4.8); Lymphocytes % (Auto) 14 % (10-50); Mean Corpuscular HGB Conc 33.7 g/dl (31.0-37.0); Mean Corpuscular Hemoglobin 31.7 pg (25.0-35.0); Mean Corpuscular Volume 94 fL (80-100); Monocytes # (Auto) 0.5 Thou/mm3 (0.0-0.8); Monocytes % (Auto) 8 % (0-12); Neutrophils # (Auto) 4.7 Thou/mm3 (1.8-7.7); Neutrophils % (Auto) 75 % (37-80); Nucleated Red Blood Cell # 0.00 Thou/mm3 (0.00-0.00); Nucleated Red Blood Cell % 0 /100 WBC (0); Platelet Count 206 Thou/mm3 (140-440); RDW Standard Deviation 47.0 fL (35.1-43.9); Red Blood Count 4.32 Miln/mm3 (4.50-5.90); White Blood Count 6.3 Thou/mm3 (3.8-10.6)
[2025-07-02 13:40] LABS: Alanine Aminotransferase 8 U/L (10-49); Albumin, Serum 4.6 gm/dL (3.4-4.8); Albumin/Globulin Ratio 1.6 (1.2-2.2); Alkaline Phosphatase 123 U/L (46-116); Anion Gap 10 (7-16); Aspartate Amino Transferase 14 U/L (0-34); BUN/Creatinine Ratio 11 Ratio (12-20); Bilirubin,Total 0.3 mg/dL (0.3-1.2); Blood Urea Nitrogen 13 mg/dL (9-23); Calcium 9.7 mg/dL (8.3-10.6); Calcium (Corrected) 9.7 mg/dL (8.5-10.1); Carbon Dioxide 32.7 mMol/L (20.0-31.0); Chloride 96 mMol/L (98-107); Creatinine (Component) 1.2 mg/dL (0.6-1.3); Globulin 2.8 gm/dL (2.3-3.5); Glucose 112 mg/dL (74-106); Osmolality,Calculated 278 (275-295); Potassium 3.3 mMol/L (3.4-5.1); Procalcitonin 0.07 ng/ml (0.0-0.49); Sodium 139 mMol/L (136-145); Total Protein 7.4 gm/dL (5.7-8.2); Troponin I < 0.002 ng/mL (0.0-0.045); eGFR > 60 See Note
[2025-07-02 14:27] LABS: Collection Type, Urine Clean Catch; Squamous Epithelial Cell,Urine 0 /hpf (0-5)
[2025-07-02 14:59] LABS: Bacteria,Urine 3+; Bilirubin,Urine Negative (Negative); Blood,Urine 1+ (Negative); Color,Urine Yellow (Lt Yel-Yel); Glucose, Urine Negative (Negative); Hyaline Casts,Urine < 1 /hpf (0-1); Ketones,Urine Negative (Negative); Leukocyte Esterase,Urine Positive (Negative); Nitrite,Urine Positive (Negative); PH,Urine 5.5 (5.0-7.0); Protein,Urine Trace (Neg - Trace); RBC,Urine 18 /hpf (0-3); Specific Gravity,Urine 1.019 (1.001-1.035); Urobilinogen,Urine Negative mg/dL (0.0-1.0); WBC,Urine 295 /hpf (0-5)
[2025-07-02 15:18] LABS: Clarity,Urine Hazy (Clear/Hazy); Culture Indicated,Urine Yes
[2025-07-02] MEDS: cefTRIAXone 1,000 MG, LIDOCAINE 1% 20 ML 2.1 ML IM (15:49)
[2025-07-02 15:58] VITALS: BP 110/60; PULSE 62; RESP 14; TEMP 36.8; O2SAT 96
== END 2025-07-02 15:59 | disposition home or self-care (01) ==
PROVIDERS: Nurse Practitioner Family; Emergency Provider Emergency Medicine; PCP Family Medicine
DX: N39.0 Urinary tract infection, site not specified (principal); I10 Essential (primary) hypertension
CPT/HCPCS: 36415; 70450; 71045; 80053; 81001; 83605; 84145; 84484; 85025; 87077; 87086; 87186; 93005; 96372; 99283; J0696; J3490; A9270